=== PATIENT | female | born 1975 | race Caucasian/White ===

== ENCOUNTER 2021-08-31 12:10 | Outpatient (CLI) | payer BC, SELFPAY ==
[2021-08-31 17:27] LABS: Albumin* 4.6 g/dL (3.3-5.0); Chloride* 102 mmol/L (96-114); Sodium* 136 mmol/L (135-149)
[2021-08-31 17:28] LABS: Potassium* 5.1 mmol/L (3.6-5.1)
[2021-08-31 17:30] LABS: Alanine Aminotransferase* 30 U/L (4-35); Alkaline Phosphatase* 78 U/L (40-150); Amylase* 52 U/L (18-89); Aspartate Amino Transferase* 25 U/L (12-35); Bilirubin Total* 0.4 mg/dL (0.1-1.5); Blood Urea Nitrogen* 13 mg/dL (5-24); Calcium* 9.6 mg/dL (8.4-10.6); Carbon Dioxide* 26 mmol/L (20-32); Creatinine* 0.7 mg/dL (0.5-1.5); Glucose* 111 mg/dL (60-115); Lipase* 200 U/L (23-300); Total Protein* 6.9 g/dL (6.0-8.3)
== END 2021-08-31 12:11 | disposition home or self-care (01) ==
PROVIDERS: PCP Family Medicine; Visit Provider Family Medicine
DX: R10.9 Unspecified abdominal pain (principal); F10.10 Alcohol abuse, uncomplicated; I10 Essential (primary) hypertension; F32.9 Major depressive disorder, single episode, unspecified
CPT/HCPCS: 80053; 82150; 83690

== ENCOUNTER 2022-03-25 10:48 | Outpatient (CLI) | payer BC, SELFPAY ==
[2022-03-25 15:01] LABS: Cholesterol* 186 mg/dL (90-199)
[2022-03-25 15:02] LABS: HDL Cholesterol* 64 mg/dL (>=50); LDL Cholesterol Calculated 110 mg/dL (<100); Triglycerides* 62 mg/dL (40-149)
[2022-03-25 16:44] LABS: Chlamydia DNA Amplified* NOT DETECTED (No Detected); GC DNA Amplified* NOT DETECTED (No Detected)
== END 2022-03-25 10:49 | disposition home or self-care (01) ==
PROVIDERS: PCP Family Medicine; Visit Provider Registered Nurse
DX: Z01.419 Encounter for gynecological examination (general) (routine) without abnormal findings (principal); I10 Essential (primary) hypertension; Z13.6 Encounter for screening for cardiovascular disorders; Z11.3 Encounter for screening for infections with a predominantly sexual mode of transmission; N94.9 Unspecified condition associated with female genital organs and menstrual cycle
CPT/HCPCS: 80061; 87491; 87591

== ENCOUNTER 2022-04-29 12:16 | Outpatient (CLI) | payer BC, SELFPAY ==
[2022-04-29 17:59] LABS: SARS PCR* Negative SARS-CoV-2 (Negative)
== END 2022-04-29 12:17 | disposition home or self-care (01) ==
LOC: LONREF 12:16
PROVIDERS: PCP Family Medicine; Visit Provider Family Medicine
DX: R05.9 Cough, unspecified (principal)
CPT/HCPCS: 87635

== ENCOUNTER 2022-05-09 19:08 | Outpatient (REF) | payer BC, SELFPAY ==
[2022-05-09 19:41] LABS: Chloride* 103 mmol/L (96-114); Sodium* 136 mmol/L (135-149)
[2022-05-09 19:42] LABS: Potassium* 5.1 mmol/L (3.6-5.1)
[2022-05-09 19:44] LABS: Carbon Dioxide* 26 mmol/L (20-32); Creatinine* 0.8 mg/dL (0.5-1.5); Estimated Glomerular Filt Rate 93 ml/min
[2022-05-09 19:45] LABS: Blood Urea Nitrogen* 18 mg/dL (5-24); Calcium* 9.7 mg/dL (8.4-10.6); Glucose* 97 mg/dL (60-115)
[2022-05-09 19:54] LABS: NT Pro B Type NatriureticPept* 941 pg/mL
== END 2022-05-09 19:09 | disposition home or self-care (01) ==
LOC: NPINS 19:08
PROVIDERS: PCP Family Medicine
DX: I50.32 Chronic diastolic (congestive) heart failure (principal)
CPT/HCPCS: 80048; 83880

== ENCOUNTER 2023-01-10 15:05 | Outpatient (CLI) | payer BC, SELFPAY | END 2023-01-10 15:06 | disposition home or self-care (01) | PROVIDERS: PCP Family Medicine; Visit Provider Family Medicine | DX: I10 Essential (primary) hypertension (principal); Z13.29 Encounter for screening for other suspected endocrine disorder; Z13.6 Encounter for screening for cardiovascular disorders | CPT/HCPCS: 80048; 80061; 84443 ==

== ENCOUNTER 2023-03-22 19:01 | Emergency (ER) | payer BC, SELFPAY ==
[2023-03-22 19:05] VITALS: BP 125/81; PULSE 58; RESP 16; TEMP 36.2; O2SAT 98; BMI 27.5
--- NOTE | 2023-03-22 19:10 | ED.GENADULT ---
HPI - General Adult General Chief complaint: Head Injury/Pain Stated complaint: concussion fell on head, high bp Time Seen by Provider: 03/22/23 19:10 History of Present Illness HPI narrative: Pt fell 2 weeks ago, suffered a frontal face injury at that time. Pt has continued to have symptoms since then: headaches, mood changes, nauseous, dizziness. 47-year-old woman accompanied by significant other reports trip and fall event 2 weeks ago where she fell into the tub I believe at home striking her face. Unclear whether not there was actual syncope. She does not acknowledge lightheadedness or palpitations or otherwise prior to this event. Has continued to have nausea and headache and fogginess since this event. Mood changes. It is hard to eat for the nausea. Pain over right periorbital forehead area and the left but more right. She is not seeing double. Bothered by a lump that remains after some degree of bruising around her eyes. This lump is in the outer 3rd of the infraorbital area above the right eye. Denies neck or back pain or injury. Kadie struggles with anxiety and I note her to be somewhat tremulous. Is worried that might have head bleed or fracture. Would also appreciate treatment for headache. She is clear that this was a trip and fall event. Has also been worried about elevated blood pressures. Past medical reviewed. Related Data Home Medications Medication Instructions Recorded Confirmed omeprazole 20 mg capsule,delayed 20 mg PO QDAY 08/31/21 01/10/23 release carvedilol 6.25 mg tablet 6.25 mg PO BID 05/30/22 01/10/23 clonidine HCl 0.2 mg tablet 0.2 mg PO QHS 05/30/22 01/10/23 losartan 25 mg tablet 12.5 mg PO QDAY 05/30/22 01/10/23 Previous Rx's Medication Instructions Recorded disulfiram 250 mg tablet See Rx Instructions .Route 08/30/22 .COMPLEX #90 tabs citalopram 40 mg tablet 40 mg PO QDAY #90 tabs 12/29/22 bupropion HCl 150 mg 24 hr tablet, 150 mg PO QAM #30 tabs 01/10/23 extended release furosemide 20 mg tablet 40 mg (2 x 20 mg) PO QAM #180 tabs 01/10/23 zolpidem 5 mg tablet 5 mg PO QHS PRN insomnia #21 tabs 01/10/23 atorvastatin 20 mg tablet 20 mg PO QDAY #90 tabs 01/19/23 clonazepam 1 mg tablet See Rx Instructions PO TID #60 tabs 03/14/23 ondansetron 4 mg disintegrating 4 mg PO Q4-6H PRN nausea and 03/22/23 tablet vomiting #15 tabs Allergies Allergy/AdvReac Type Severity Reaction Status Date / Time No Known Drug Allergies Allergy Verified 01/10/23 14:21 Review of Systems Status of ROS: Reports: 6 or more systems reviewed and unremarkable except as noted in History and below [facility] Medical History Cervical dysplasia ?N87.9 - Dysplasia of cervix uteri, unspecified (ICD-10) Surgical History S/P LEEP (05/30/22) ?Z98.890 - Other specified postprocedural states (ICD-10) History of loop electrosurgical excision procedure (LEEP) (2005) ?Z98.890 - Other specified postprocedural states (ICD-10) History of tubal ligation ?Z98.51 - Tubal ligation status (ICD-10) Family History Paternal Grandfather Coronary artery disease Father Alcoholism High blood pressure Brother Alcoholism Maternal Grandmother Breast cancer Social History What is your current living situation?: I presently have a place to live Problems where you live: no known problems In the past 12 months, utilities in danger of being shut off: no In past 12 months, lack of transportation kept you from medical appts, meetings, work, or getting things needed for daily living: no In the past 12 mos, have been you worried that your food would run out before you had money to buy more?: sometimes true In the past 12 mos, the food you bought just didn't last and you didn't have money to buy more?: never true Smoking Status: Current every day smoker Non-prescribed substance use: denies use How often does anyone, including family, friends and others, physically hurt you: never How often does anyone, including family, friends and others, insult or talk down to you: rarely How often does anyone, including family, friends and others, threaten you with harm: never How often does anyone, including family, friends and others, scream or curse at you: never Little interest or pleasure in doing things: more than half the days Feeling down, depressed, or hopeless: nearly every day Exam Narrative: Exam Narrative: Appears generally uncomfortable. Flatter affect. Breathing easily. Bruising noted consistent with date of injury in the right periorbital area. There is a sub cm swelling in the soft tissue in the soft tissue of the supraorbital rim on the right little more lateral. Extraocular movements are intact. No nystagmus. Pupils are equal and 3 mm. External ear canals are free of fluid. Nose appears to be midline. Oropharynx without acute abnormality/injury. Neck is supple nontender other than a little soreness in the right trapezial musculature. Back is otherwise nontender. Lungs are clear. Heart in slow but regular rate. Extremities are well perfused without edema. Moving all extremities without difficulty. Const: Vital Signs, click to edit/add: Vital Signs - 24 hr 03/22/23 19:05 03/22/23 19:29 03/22/23 21:36 Temperature 97.1 F L 98.3 F Pulse Rate [Pulse Oximeter] 58 L 61 Respiratory Rate 16 16 Blood Pressure [Ri ght Upper Arm] 125/81 118/79 Pulse Oximetry 98 96 97 Oxygen Delivery Me thod Room Air Room Air Documenting provider has reviewed patient's vital signs: yes Course Vital Signs Vital signs: Initial Vital Signs Temperature 97.1 F L 03/22/23 19:05 Temperature Source Temporal Artery Scan 03/22/23 19:05 Pulse Rate 58 L 03/22/23 19:05 Respiratory Rate 16 03/22/23 19:05 Blood Pressure 125/81 03/22/23 19:05 Blood Pressure Mean 95 03/22/23 19:05 Blood Pressure Position Sitting 03/22/23 19:05 Pulse Oximetry 98 03/22/23 19:05 Oxygen Delivery Method Room Air 03/22/23 19:05 Vital Signs Temperature 97.1 F L 03/22/23 19:05 Pulse Rate 58 L 03/22/23 19:05 Respiratory Rate 16 03/22/23 19:05 Blood Pressure 125/81 03/22/23 19:05 Pulse Oximetry 98 03/22/23 19:05 Oxygen Delivery Method Room Air 03/22/23 19:05 Temperature 98.3 F 03/22/23 21:36 Pulse Rate 61 03/22/23 21:36 Respiratory Rate 16 03/22/23 21:36 Blood Pressure 118/79 03/22/23 21:36 Pulse Oximetry 97 03/22/23 21:36 Oxygen Delivery Method Room Air 03/22/23 21:36 Medications Administered Medications: Discontinued Medications Generic Name Dose Route Start Last Admin Trade Name Freq PRN Reason Stop Dose Admin Sodium Chloride 1,000 mls @ 1,000 mls/hr 03/22/23 19:29 03/22/23 21:00 0.9 % Sodium Chloride 1000 Ml IV 03/22/23 20:28 Infused .Q1H ONE Infusion Ketorolac Tromethamine 30 mg 03/22/23 19:32 03/22/23 19:40 Ketorolac 30 Mg/Ml Inj IVP 03/22/23 19:33 30 mg ONCE ONE Administration Lorazepam 0.5 mg 03/22/23 19:32 03/22/23 19:40 Lorazepam 2 Mg/Ml Inj IVP 03/22/23 19:33 0.5 mg ONCE ONE Administration Ondansetron HCl 4 mg 03/22/23 19:32 03/22/23 19:40 Ondansetron 2 Mg/Ml Inj IVP 03/22/23 19:33 4 mg ONCE ONE Administration Medical Decision Making MDM Narrative Medical decision making narrative: There is a history of alcohol abuse and anxiety. Apparently maintaining sobriety. I would suspect concussion here. Otherwise in this circumstance I think it is very reasonable to scan head and face for evidence of injury or bleed. Offered treatment for her headache. She would like that as well. Check basic labs if there might be some other indication as to reason for this fall. I think anxiety is compounding symptoms here today. IVs established. Ordered for normal saline, ketorolac Zofran and singular dose of lorazepam. On reassessment appeared somewhat improved though did not seem to think she felt that much better. Stable vitals. Did discuss other treatment options but felt like she just wanted to go home at this point. Labs are reassuring. Imaging is WNL by my read. Radiology over-read as below. COMPARISON: Face CT from 08/02/2021. FINDINGS: No acute fracture of the maxillofacial bones. No significant soft tissue injury. The orbital contents are normal in appearance. There is no evidence for penetrating injury to the ocular globes. The lenses are situated in their normally expected anterior locations. No radiodense or metallic foreign body is demonstrated. The sinonasal cavities are clear. Mild leftward nasal septal deviation. The visualized portions of the brain are normal in appearance. IMPRESSION: 1. No acute fracture of the maxillofacial bones. Head CT INDICATION: Follow-up. Worsening headaches TECHNIQUE: CT of the head without contrast. Coronal and sagittal reformats are included. COMPARISON: None. FINDINGS: No acute intracranial hemorrhage. No mass effect or midline shift. No hydrocephalus or extra-axial collections. White matter is within normal limits for age. No acute osseous abnormalities. Mastoid air cells and paranasal sinuses are clear. Normal soft tissues. IMPRESSION: IMPRESSION: 1. No acute intracranial abnormalities. See patient discharge plan Medical Records Medical records reviewed: Yes I reviewed the patient's medical records Lab Data Lab results reviewed: Yes I reviewed the patient's lab results Labs: Lab Results 03/22/23 Range/Units 19:32 Hgb 14.3 (12.0-16.0) gm/dL Sodium 137 (135-149) mmol/L Potassium 3.6 (3.6-5.1) mmol/L Chloride 104 (96-114) mmol/L Carbon Dioxide 27 (20-32) mmol/L Anion Gap 6 L (7-15) mEq/L BUN 12 (5-24) mg/dL Creatinine 0.7 (0.5-1.5) mg/dL Estimated Creat Clear 83.95 Estimated GFR 109 ml/min Glucose 107 (60-115) mg/dL Calcium 9.3 (8.4-10.6) mg/dL Total Bilirubin 0.3 (0.1-1.5) mg/dL Direct Bilirubin 0.0 (0.0-0.5) mg/dL AST 25 (12-35) U/L ALT 39 H (4-35) U/L Alkaline Phosphatase 85 (40-150) U/L Total Protein 7.6 (6.0-8.3) g/dL Albumin 4.5 (3.3-5.0) g/dL Ethyl Alcohol < 0.01 L (0.01-0.03) % Discharge Plan Discharge Clinical Impression: Concussion, Closed head injury, Headache Patient Disposition: Home w/ Parent or Adult Condition: Stable Additional Instructions: Focus on staying well hydrated with water. Gentle advance of diet. [place] foods. Soup, smoothies, rice, toast, crackers Try to get quality and regular sleep. Your brain needs this. It might be time to follow with primary care and/or physical therapy to evaluate further for post concussive syndrome/symptoms. Blood pressure here today looked quite good. If you are still taking clonidine regularly, that is definitely a medication that you should not stop abruptly. Kyler from [employer] -- had to send in to pharmacy. Prescriptions: New ondansetron 4 mg tablet,disintegrating 4 mg PO Q4-6H PRN (Reason: nausea and vomiting) Qty: 15 0RF No Action omeprazole 20 mg capsule,delayed release(DR/EC) 20 mg PO QDAY bupropion HCl 150 mg tablet extended release 24 hr 150 mg PO QAM Qty: 30 5RF zolpidem 5 mg tablet 5 mg PO QHS PRN (Reason: insomnia) Qty: 21 1RF furosemide 20 mg tablet 40 mg PO QAM Qty: 180 1RF losartan 25 mg tablet 12.5 mg PO QDAY carvedilol 6.25 mg tablet 6.25 mg PO BID Rx Instructions: must administer with a meal/food clonidine HCl 0.2 mg tablet 0.2 mg PO QHS disulfiram 250 mg tablet See Rx Instructions .ROUTE .COMPLEX Qty: 90 1RF Dose Instruction: TAKE 1 TABLET BY MOUTH EVERY DAY Rx Instructions: TAKE 1 TABLET BY MOUTH EVERY DAY citalopram 40 mg tablet 40 mg PO QDAY Qty: 90 0RF atorvastatin 20 mg tablet 20 mg PO QDAY Qty: 90 3RF clonazepam 1 mg tablet See Rx Instructions PO TID Qty: 60 1RF Rx Instructions: 0.5-1 mg t.i.d. p.r.n. Follow Up/Referrals: Juan Carlos Mcqueen MD [Primary Care Provider] - Stand Alone Forms: [employer] Info Instructions
[2023-03-22 19:29] VITALS: O2SAT 96
--- NOTE | 2023-03-22 19:29 | CRLHL7_ITS ---
For Patients: As a result of the Century Cures Act, medical imaging exams and procedure reports are released immediately into your electronic medical record. You may view this report before your referring provider. If you have questions, please contact your health care provider. INDICATION: Facial trauma. TECHNIQUE: CT of the face without contrast. Coronal reconstructions are included. COMPARISON: Face CT from 08/02/2021. FINDINGS: No acute fracture of the maxillofacial bones. No significant soft tissue injury. The orbital contents are normal in appearance. There is no evidence for penetrating injury to the ocular globes. The lenses are situated in their normally expected anterior locations. No radiodense or metallic foreign body is demonstrated. The sinonasal cavities are clear. Mild leftward nasal septal deviation. The visualized portions of the brain are normal in appearance. IMPRESSION: 1. No acute fracture of the maxillofacial bones. Please note that all CT scans at this facility use dose modulation, iterative reconstruction, and/or weight-based dosing when appropriate to reduce radiation dose to as low as reasonably achievable. Dictated by Richard Durham MD @ 03/22/2023 8:37:15 PM (Electronically Signed)
--- NOTE | 2023-03-22 19:30 | CRLHL7_ITS ---
For Patients: As a result of the Century Cures Act, medical imaging exams and procedure reports are released immediately into your electronic medical record. You may view this report before your referring provider. If you have questions, please contact your health care provider. INDICATION: Follow-up. Worsening headaches TECHNIQUE: CT of the head without contrast. Coronal and sagittal reformats are included. COMPARISON: None. FINDINGS: No acute intracranial hemorrhage. No mass effect or midline shift. No hydrocephalus or extra-axial collections. White matter is within normal limits for age. No acute osseous abnormalities. Mastoid air cells and paranasal sinuses are clear. Normal soft tissues. IMPRESSION: IMPRESSION: 1. No acute intracranial abnormalities. Please note that all CT scans at this facility use dose modulation, iterative reconstruction, and/or weight-based dosing when appropriate to reduce radiation dose to as low as reasonably achievable. Dictated by Richard Durham MD @ 03/22/2023 8:26:01 PM (Electronically Signed)
[2023-03-22] MEDS: 0.9 % SODIUM CHLORIDE 1000 ml 1,000 ML IV (19:36)
[2023-03-22 19:39] LABS: Hemoglobin* 14.3 gm/dL (12.0-16.0)
[2023-03-22] MEDS: KETOROLAC 30 MG/ML inj IVP (19:40)
[2023-03-22] MEDS: LORazepam 2 MG/ML inj 0.5 MG IVP (19:40)
[2023-03-22] MEDS: ONDANSETRON 2 MG/ML inj 4 MG IVP (19:40)
--- OUTSIDE RECORDS SUMMARY | 2023-03-22 19:48 | XMS_ITS | Referral Summary ---
Author Name Unknown Organization [facility] Address [address] [place] [address] Care Team Providers Care Web Site Administrator Name Role Phone Unavailable Primary Care Provider Unavailabl e Allergies Active Allergy Reactions Criticality Noted Date Comments No Known Drug Allergy 12/05/2001 Medications Medication Sig Dispensed Refills Start Date End Date Status citalopram (CELEXA) 40 MG tabletIndications:Mateo marcos depressive disorder, single episode, mild (H24),Anxiety Take 1 tablet (40 mg) by mouth daily 30 tablet 1 11/19/2015 Active traZODone (DESYREL) 50 MG tabletIndications:Un complicated alcohol dependence (H) Take 1 tablet (50 mg) by mouth nightly as needed for sleep 30 tablet 0 11/20/2015 Active disulfiram (ANTABUSE) 250 MG tabletIndications:Un complicated alcohol dependence (H) Take 1 tablet (250 mg) by mouth daily 30 tablet 0 11/20/2015 Active lisinopril (ZESTRIL) 40 MG tablet Take 40 mg by mouth daily 0 Active metoprolol succinate ER (TOPROL-XL) 100 MG 24 hr tablet Take 100 mg by mouth daily 0 Active naltrexone (DEPADE/REVIA) 50 MG tablet Take 50 mg by mouth daily 0 Active ondansetron (ZOFRAN) 4 MG tablet Take 4 mg by mouth every 6 hours as needed for nausea 0 Active cloNIDine (CATAPRES) 0.2 MG tablet Take 1 tablet by mouth in the morning and 2 tablets at bedtime 0 Active clonazePAM (KLONOPIN) 1 MG tablet Take 1/2 tablet by mouth in the morning, 1/2 tablet in the afternoon, and 1 tablet at bedtime 0 Active omeprazole (PRILOSEC OTC) 20 MG EC tablet Take 20 mg by mouth daily 0 Active oxymetazoline (AFRIN) 0.05 % nasal spray [place] 2 sprays into both nostrils daily as needed 0 Active gabapentin (NEURONTIN) 400 MG capsule Take 1 capsule (400 mg) by mouth 3 times daily For 3 days, then twice daily for 1 day, then once daily on day 5, then stop 12 capsule 0 08/02/2020 Active Active Problems Problem Noted Date Diagnosed Date Alcohol abuse 11/18/2015 [facility] 05/06/2011 Overview: X EMERGENCY CARE PLAN Presenting Problem Signs and Symptoms Treatment Plan Questions or concerns during clinic hours I will call the clinic directly Questions or concerns outside clinic hours I will call the 24 hour nurse line at [phone] Patient needs to schedule an appointment I will call the 24 hour scheduling team at [phone] or clinic directly Same day treatment I will call the clinic first, nurse line if after hours, urgent care and express care if needed DX V65.8 REPLACED WITH [id number] [facility] (06/11/2012) PIH ( induced hypertension) 10/11/2010 Overview: Pt received betamethasone x's doses 10/15/10 and 10/16/10 Tobacco use disorder 05/11/2010 Overview: Pt. Continues to smoke appx. Three cigarettes daily during . Autism 05/11/2010 Overview: Pt's son Dionisio was dx'd with autism, tested neg for fragile X CARDIOVASCULAR SCREENING; LDL GOAL LESS THAN 160 01/03/2010 Anxiety state 03/16/2006 Overview: Problem list name updated by automated process. Provider to review mental disorders of mother 02/07/2006 Overview: Problem list name updated by automated process. 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 Provider to review and confirm.) Encounter for supervision of other normal 10/12/2005 02/08/2011 Overview: Diagnosis updated by automated process. Provider to review and confirm. Immunizations Name Administration Dates Next Due Influenza (IIV3) PF 12/14/2005 TDAP (Adacel,Boostrix) 03/06/2009 Social History Tobacco Use Types Packs/Day Years Used Date Smoking Tobacco: Every Day Cigarettes 0.5 10 Smokeless Tobacco: Never Comments:Not everyday, when she does smoke it is only 1-2 Alcohol Use Standard Drinks/Week Comments Yes 0 (1 standard drink = 0.6 oz pur e alcohol) Adolescent Education Answer Date Record ed Getting School Help Needed Not on file 12/11 Sex and Gender Information Value Date Recorded Sex Assigned at Not on file Gender Identity Not on file Sexual Orientation Not on file Last Filed Vital Signs Vital Sign Reading Time Taken Comments Blood Pressure 156/89 08/02/2020 3:02 PM CDT Pulse 65 08/02/2020 3:02 PM CDT Temperature 36.1 ??C (96.9 ??F) 08/02/2020 3:02 PM CD T Respiratory Rate 16 08/02/2020 5:48 PM CDT Oxygen Saturation 96% 08/02/2020 3:02 PM CDT Inhaled Oxygen Concentration - - Weight 64.5 kg (142 lb 1.6 oz) 08/02/2020 3:14 P M CDT Height 160 cm (5' 3) 11/18/2015 12:58 AM CDT Body Mass Index 25.17 11/18/2015 12:58 AM CDT Plan of Treatment Not on file Medical Devices Implanted Type Area Presser Hand Device Identifier Shelf Expiration Date Model / Serial / Lot Device Essure [id number] Implanted:Qty: 2 on 02/09/[address] [facility] Bilateral: Fallopian Tube [employer] [id number] / / [id number] Advance Directives For more information, please contact: [phone] Latest Code Status on File Code Status Date Activated Date Inactivated Comments Full Code 11/18/2015 12:49 AM 11/20/2015 4:26 PM
--- OUTSIDE RECORDS SUMMARY | 2023-03-22 19:48 | XMS_ITS | Encounter Summary ---
Author Name Unknown Organization [facility] Address [address] [place] [address] Care Team Providers Care Compounding And Finishing Supervisor Name Role Phone Unavailable Primary Care Provider Unavailabl e Reason for Visit * Reason Onset Date Comments CD Outpatient 11/18/2015 lodging plus Other Encounter Details Date Type Department Care Team ([facility] Contact Info) Description 11/18/[address] [facility] Behavior[facility] Health Intake [address] [place] [phone] Generic, Behavioral Intake, CD Outpatient (lodging plus); Social History Tobacco Use Types Packs/Day Years Used Date Smoking Tobacco: Some Days Cigarettes 0.5 10 Smokeless Tobacco: Never Comments:Not everyday, when she does smoke it is only 1-2 Alcohol Use Standard Drinks/Week Comments Yes 0 (1 standard drink = 0.6 oz pur e alcohol) Sex and Gender Information Value Date Recorded Sex Assigned at Not on file Gender Identity Not on file Sexual Orientation Not on file documented as of this encounter Miscellaneous Notes * Telephone Encounter - Isaiah Delong - 11/26/2015 10:54 AM CDT Attempted to call patient to set up LP admit, phone rings multiple times and doesn't go to voicemail. Since patient hasn't called to check in and her phone is not working will take off the list untilfurther notice. I spoke with her father at the other number and he stated she can only be reached at that number. * Telephone Encounter - Isaiah Delong - 11/25/2015 10:22 AM CDT Attempted to call the patient today to see if she is interested in setting up LP admit. Phone ringsmultiple times and doesn't go to voicemail. * Telephone Encounter - Isaiah Delong - 11/24/2015 11:16 AM CDT Called patient to check in and see if she is still interested in LP- unable to leave a message the phone rang multiple times but never went to voicemail. * Telephone Encounter - Jim Davis - 11/19/2015 3:07 PM CDT ----- Message from Natalie Friedman sent at 11/19/2015 2:40 PM CDT ----- Regarding: LP wait list Patient is discharging home to make arrangements for the care of her children. Please maintain on wait list. Patient's contact numbers are: Home: Parent's home: [phone] Thank you * Telephone Encounter - Natalie Friedman LADC - 11/19/2015 11:16 AM CDT SBAR Name: Kadie Moss Date of : 1975 Age: [age] year old Gender: female Insurance: [facility] Precipitating Event: Treatment due to own awareness of need for help, Treatment due to pressure from family members to get help and to help her family heal. DOC: Alcohol and Nicotine Additional abused substances: None Medical: Hypertension Mental Health: Depression, Anxiety, PTSD, Borderline Personality D/O, History of trauma and/or abuse issues and Significant grief and loss issues Previous Treatments: 1 prior IP detoxification admission(s). 2 prior CD treatment(s). Psychosocial: and Seperated 5 minor child(ginette) Stable housing and no concerns (guns in home but locked) Minimal support network, Tendency to isolate from others, Marital or relationship conflict with significant other due to substance abuse, Relationship conflict with family members or friends due to substance abuse, No history of legal charges, Decreased performance at work or school in part due to substance abuse and Financial problems Suicide Risk Status: Emergent? No Urgent / Non-Emergent? No Present / Non- Urgent? No No Current Risk? Yes, Evaluation Counselors - Document in Epic / SBAR to counselor No identified risk Additional Info as needed: Electronically signed by Natalie Friedman I [facility] at 11/19/2015 11:33 AM CDT * Telephone Encounter - Kassy Castillo - 11/18/2015 9:31 AM CDT Placed on priority list. Kassy Castillo * Telephone Encounter - Kassy Castillo - 11/18/2015 9:30 AM CDT ----- Message from Natalie Friedman sent at 11/18/2015 8:39 AM CDT ----- Regarding: LP Referral Patient is requesting LP [facility] Transfer date TBD (/Monday?) Please place on priority list Thank you documented in this encounter Plan of Treatment Not on file documented as of this encounter Visit Diagnoses Not on filedocumented in this encounter
--- OUTSIDE RECORDS SUMMARY | 2023-03-22 19:48 | XMS_ITS | Encounter Summary ---
Author Name Unknown Organization [place] Address [address] [facility] [place] [address] Care Team Providers Care Night Clerk Name Role Phone Unavailable Primary Care Provider Unavailabl e Reason for Visit * Reason Onset Date Comments MH/CD Inpatient 11/17/2015 Encounter Details Date Type Department Care Team ([facility] st Contact Info) Description 11/17/2015 Telephone [facility] Behavioral Health Intake [address] [place] [address] Generic, Behavioral Intake, MH/CD Inpatient Social History Tobacco Use Types Packs/Day Years [...] encounter Miscellaneous Notes * Telephone Encounter - Prema Reina - 11/17/2015 10:10 PM CDT S: pt is a 40 yr old fem in ED for detox from etoh report by Dr. France B: pt reports she is drinking packs of wine daily. Last reported drink was 7 pm. Breathalyzer .215.Hx of detox and treatment pt reports she can't remember when. No reported hx of DTs or seizures. Ptdenies other drug use. Hx of dep and borderline personality d/o. Medical: high bp. A: vol R: 3a / Amer / cd documented in this encounter Plan of Treatment Not on file documented as of this encounter Visit Diagnoses Not on filedocumented in this encounter
--- OUTSIDE RECORDS SUMMARY | 2023-03-22 19:48 | XMS_ITS | Clinical Summary ---
Author Name Unknown Organization [place] Address [address] [facility] [place] [address] Care Team Providers Care Endo Tech Name Role Phone Unavailable Primary Care Provider [...] Active oxymetazoline (AFRIN) 0.05 % nasal spray [place] 2 sprays into both nostrils daily as needed 0 Active gabapentin (NEURONTIN) 400 MG capsule Take 1 capsule (400 mg) by mouth 3 times daily For 3 days, then twice daily for 1 day, then once daily on day 5, then stop 12 capsule 0 08/02/2020 Active Active Problems Problem Noted Date Diagnosed Date Alcohol abuse 11/18/2015 [facility] 05/06/2011 Overview: X EMERGENCY CARE PLAN Presenting Problem Signs and Symptoms Treatment Plan Questions or concerns during clinic hours I will call the clinic directly Questions or concerns outside clinic hours I will call the 24 hour nurse line at [phone] Patient needs to schedule an appointment I will call the 24 hour scheduling team at [phone] or clinic directly Same day treatment I will call the clinic first, nurse line if after hours, urgent care and express care if needed DX V65.8 REPLACED WITH [id number] [facility] LONGTERM (06/11/2012) PIH ( induced hypertension) 10/11/2010 Overview: [...] 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 Provider to review and confirm.) Encounter for supervision of other normal 10/12/2005 02/08/2011 Overview: Diagnosis updated by automated process. Provider to review and confirm. Immunizations Name Administration Dates Next Due Influenza (IIV3) PF 12/14/2005 TDAP (Adacel,Boostrix) 03/06/2009 Family History Medical History Relation Comments Lipids Father Cancer Maternal Grandfather lung Breast Cancer Maternal Grandmother Relation Status Comments Father Maternal Grandfather Maternal Grandmother Social History Tobacco Use Types Packs/Day Years [...] 11/18/2015 12:58 AM CDT Plan of Treatment Health Maintenance Due Date Last Done Comments ADVANCE CARE PLANNING 1977 ANNUAL REVIEW OF HM ORDERS 1977 CT COLONOGRAPHY 1977 DEPRESSION ACTION PLAN 1977 FIT 1977 FLEX SIG 1977 HEPATITIS B IMMUNIZATION (1 of 3 - 3-dose series) 1977 MAMMO SCREENING 1977 sDNA (Cologuard) 1977 COVID-19 Vaccine (#1) 02/22/1978 Pneumococcal Vaccine: Pediatrics (0 to 5 Years) and At-Risk Patients (6 to 64 Years) (1 of 2 - PCV) 08/24/1983 COLONOSCOPY 08/24/1987 COLORECTAL CANCER SCREENING 08/24/1987 HEPATITIS C SCREENING 08/24/1995 YEARLY PREVENTIVE VISIT 08/25/2010 08/25/2009, 05/14 PHQ-9 10/21/2011 04/22/2011, 10/26/2010 PAP 01/11/2012 01/10/2011, 05/05, 08/25/2009, Additional history exists DTAP/TDAP/TD IMMUNIZATION (2 - Td or Tdap) 03/06/2019 03/06/2009 LIPID 2022 INFLUENZA VACCINE (#1) 2022 12/14/2005 HIV SCREENING Completed 05/11/2010, 05/03/2004 HPV IMMUNIZATION Aged Out No longer e ligible based on patient's age to complete this topic IPV IMMUNIZATION Aged Out No longer e ligible based on patient's age to complete this topic MENINGITIS IMMUNIZATION Aged Out No l onger eligible based on patient's age to complete this topic RSV MONOCLONAL ANTIBODY Aged Out No l onger eligible based on patient's age to complete this topic Medical Devices Implanted Type Area Blast Setter Device Identifier Shelf Expiration Date Model / Serial / Lot Device Essure [id number] Implanted:Qty: 2 on 02/09/2011 at [facility] Bilateral: Fallopian Tube [employer] [id number] / / [id number] Advance Directives For more information, please contact: [phone] Latest Code Status on File Code Status Date Activated Date Inactivated Comments Full Code 11/18/2015 12:49 AM 11/20/2015 4:26 PM
--- OUTSIDE RECORDS SUMMARY | 2023-03-22 19:48 | XMS_ITS | Encounter Summary ---
Author Name Unknown Organization [facility] Address [address] [facility] [place] [address] Care Team Providers Care Parking Meter Mechanic Name Role Phone Niko Pryor MD Primary Care Provider [phone] Jayden Santo MD Primary Care Provider Encounter Details Date Type Department Care Team (Late st Contact Info) Description 11/10/2010 [facility] [address] [place] [id number] Olive Brown, DO [address] [place], [place] [id number] [facility] Delivery Record Social History Tobacco Use Types Packs/Day Years Used Date Smoking Tobacco: Every Day Cigarettes 0.5 10 Smokeless Tobacco: Never Comments:Not everyday, when she does smoke it is only 1-2 Alcohol Use Standard Drinks/Week Comments Yes 0 (1 standard drink = 0.6 oz pur e alcohol) Comments Yes Sex and Gender Information Value Date Recorded Sex Assigned at Not on file Gender Identity Not on file Sexual Orientation Not on file documented as of this encounter Plan of Treatment Not on file documented as of this encounter Visit Diagnoses Diagnosis [facility] Delivery Record- Primary documented in this encounter Care Teams Parking Meter Mechanic Relationship Specialty Start Date End Date Niko Pryor MD [address] [place] [address] PCP - General 04/20/01 04/30/11 Jayden Santo MD [address] [place] [id number] PCP - General Internal Medicine 05/01/11 03/06/15 documented as of this encounter
--- OUTSIDE RECORDS SUMMARY | 2023-03-22 19:48 | XMS_ITS | Clinical Summary ---
Author Name Unknown Organization [facility] Address [place], [place] [address] Care Team Providers Care Pharmacy Technician Instructor Name Role Phone Juan Carlos Mcqueen MD Primary Care Provider [phone] Renato Hayward MD Unavailable [phone] Nurses, Advanced Heart Failure Unavailable + Allergies No known active allergies Medications Medication Sig Dispensed Refills Start Date End Date Status citalopram (CELEXA) 40 mg tablet Take 40 mg by mouth every morning. 0 01/19/2022 Active clonazePAM (KLONOPIN) 1 mg tablet 1 mg 3 times daily if needed for Anxiety. 0 04/01/2022 Active disulfiram (ANTABUSE) 250 mg tablet 250 mg every morning. 0 04/08/2022 Active Deblitane 0.35 mg tablet 0.35 mg once daily. 0 04/18/2022 Active cloNIDine HCL (CATAPRES) 0.2 mg tabletIndications:Hype rtension Take 0.5 Tablets (0.1 mg) by mouth at bedtime. 04/29/22: (Prescribed as 0.2 mg QAM + 0.4 mg QHS; however, patient takes only 0.4 mg at bedtime due to drowsiness) 0 05/04/2022 Active ARIPiprazole (ABILIFY) 5 mg tabletIndications:Anxi ety,Depressive disorder,Panic disorder without agoraphobia Take one-half Tablet (2.5 mg) by mouth every morning. 90 Tablet 3 05/05/2022 Active nicotine (NICOTROL) 10 mg inhalerIndications:Tob acco use disorder Inhale 10 mg by mouth every hour while awake as needed for Nicotine Craving. 168 Each 3 05/10/2022 Active carvediloL (COREG) 12.5 mg tabletIndications:Othe r cardiomyopathy (HC),Hypertension Take 6.25 mg (1/2 tablet) in the AM and 12.5 mg (1 tablet) in the PM 135 Tablet 3 06/01/2022 Active furosemide (LASIX) 20 mg tabletIndications:Og estive heart failure, unspecified HF chronicity, unspecified heart failure type (HC) Take 40 mg (2 tablets) twice a day until weight is back down to 143 lbs. Then start taking 20 mg (1 tablet) twice a day 90 Tablet 3 09/07/2022 Active losartan (COZAAR) 25 mg tabletIndications:Othe r cardiomyopathy (HC),Hypertension Take 0.5 Tablets (12.5 mg) by mouth once daily. 45 Tablet 3 09/28/2022 Active Active Problems Problem Noted Date Diagnosed Date Anxiety 04/29/2022 Hypertension 04/29/2022 Cardiomyopathy 04/29/2022 Alcohol abuse 11/18/2015 Tobacco use disorder 05/11/2010 Overview: Pt. Continues to smoke appx. Three cigarettes daily during . Panic disorder without agoraphobia 08/02/2007 Depressive disorder, not elsewhere classified Chest pain Social History Tobacco Use Types Packs/Day Years Used Date Smoking Tobacco: Every Day Cigarettes 0.5 32 Started: 1991 Smokeless Tobacco: Never Tobacco Cessation:Ready to Q uit: Not Asked; Counseling Given: Not Answered Alcohol Use Standard Drinks/Week Comments Not Currently 0 (1 standard drink = 0.6 oz pur e alcohol) PHQ-2 Answer Date Recorded PHQ-2 TOTAL SCORE 4 08/08/2022 Social Connections Answer Date Recorded Frequency of Communication with Friends and Fami ly Not on file 05/10/2022 Sex and Gender Information Value Date Recorded Sex Assigned at Not on file Gender Identity Not on file Sexual Orientation Not on file Obstetrics History Last Filed Vital Signs Vital Sign Reading Time Taken Comments Blood Pressure 109/76 09/28/2022 10:15 AM CDT Pulse 63 09/28/2022 10:15 AM CDT Temperature 36.7 ??C (98.1 ??F) 05/04/2022 8:16 AM CS T Respiratory Rate 18 08/17/2022 11:50 AM CDT Oxygen Saturation 97% 09/28/2022 10:15 AM CDT Inhaled Oxygen Concentration - - Weight 73 kg (161 lb) 09/28/2022 10:15 AM CDT Height 160 cm (5' 2.99) 09/28/2022 10:15 AM CDT Body Mass Index 28.53 09/28/2022 10:15 AM CDT Plan of Treatment Health Maintenance Due Date Last Done Comments COVID-19 vaccine series (#1) 02/22/1978 Pneumococcal series for age 6-64 (1 of 2 - PCV) 08/24/1983 Tdap 1988 Hepatitis C screening for ag e 18-79 08/24/1995 Tetanus booster 1997 Colonoscopy through age 75 2022 Mammogram for age 45-75 2022 Influenza for age 9-49 11/04/2022 Depression screening for age 12+ 08/09/2023 08/09/19 BMI (ht and wt on same day) for age 18+ 09/29/2023 09/28/2022, 05/10/2022 Pap test for age 21-65 03/25/2025 , 03/25/2022, 03/31/2015, Additional history exists Lipids for age 45-75 04/30/2027 04/30/2022 HIV for age 15-65 Completed 04/30/2022, 04/30/2022 Advance Directives Latest Code Status on File Code Status Date Activated Date Inactivated Comments Full Code 04/29/2022 6:27 PM 05/04/2022 1:58 PM Question Answer Comments Code Status Discussion: Unable to Assess Preferences, Provider to review later Care Teams Pharmacy Technician Instructor Relationship Specialty Start Date End Date Juan Carlos Mcqueen MD PCP - General Family Practice 05/10/22 Renato Hayward MD [address] [place] [address] [address] [place] [address] Cardiovascular Disease 05/12/22 Nurses, Advanced Heart Failure [address] [place] [address] Advanced Heart Failure/Transplant Card 05/12/22
[2023-03-22 20:09] LABS: Chloride* 104 mmol/L (96-114)
[2023-03-22 20:10] LABS: Albumin* 4.5 g/dL (3.3-5.0); Potassium* 3.6 mmol/L (3.6-5.1); Sodium* 137 mmol/L (135-149)
[2023-03-22 20:12] LABS: Anion Gap 6 mEq/L (7-15); Carbon Dioxide* 27 mmol/L (20-32); Creatinine* 0.7 mg/dL (0.5-1.5); Est. Creatinine Clearance* 83.95; Estimated Glomerular Filt Rate 109 ml/min; Total Protein* 7.6 g/dL (6.0-8.3)
[2023-03-22 20:13] LABS: Alanine Aminotransferase* 39 U/L (4-35); Alkaline Phosphatase* 85 U/L (40-150); Aspartate Amino Transferase* 25 U/L (12-35); Bilirubin Total* 0.3 mg/dL (0.1-1.5); Blood Urea Nitrogen* 12 mg/dL (5-24); Calcium* 9.3 mg/dL (8.4-10.6); Glucose* 107 mg/dL (60-115)
[2023-03-22 20:21] LABS: Ethanol* < 0.01 % (0.01-0.03)
[2023-03-22 21:36] VITALS: BP 118/79; PULSE 61; RESP 16; TEMP 36.8; O2SAT 97
== END 2023-03-22 21:36 | disposition home or self-care (01) ==
PROVIDERS: Emergency Provider Family Medicine; PCP Family Medicine
DX: S06.0X0A Concussion without loss of consciousness, initial encounter (principal); W18.2XXA Fall in (into) shower or empty bathtub, initial encounter; R51.9 Headache, unspecified
CPT/HCPCS: 36415; 70450; 70486; 80048; 80076; 82077; 85018; 94761; 96374; 96375; 99284; J1885; J2060; J2405; J7030

== ENCOUNTER 2023-06-23 09:40 | Outpatient (CLI) | payer BC, SELFPAY ==
--- OUTSIDE RECORDS SUMMARY | 2023-06-23 09:42 | XMS_ITS | Clinical Summary ---
Author Name Unknown Organization [facility] Address [place], [place] [address] Care Team Providers Care Police Superintendent Name Role Phone Juan Carlos Mcqueen MD Primary Care Provider [phone] Renato Hayward MD Unavailable [phone] Nurses, Advanced Heart Failure Unavailable + Allergies No known active allergies Medications Medication Sig Dispensed Refills Start Date End Date Status citalopram (CELEXA) 40 mg tablet Take 40 mg by mouth every morning. 01/19/2022 Active clonazePAM (KLONOPIN) 1 mg tablet 1 mg 3 times daily if needed for Anxiety. 04/01/2022 Active disulfiram (ANTABUSE) 250 mg tablet 250 mg every morning. 04/08/2022 Active Deblitane 0.35 mg tablet 0.35 mg once daily. 04/18/2022 Active cloNIDine HCL (CATAPRES) 0.2 mg [...] Depressive disorder, not elsewhere classified Chest pain Encounters Date Type Department Care Team Description 05/22/2023 Lab Requisition [facility] [phone] Lindsay Earl, HYBRID CORN BREEDER from Last 3 Months Social History Tobacco Use Types Packs/Day Years Used Date Smoking Tobacco: Every Day Cigarettes 0.5 32.3 Started: 1991 Smokeless Tobacco: Never Tobacco Cessation:Ready [...] Health Maintenance Due Date Last Done Comments Pneumococcal series for age 6-64 (1 of 2 - PCV) 08/24/1983 Tdap 1988 Hepatitis C screening for ag e 18-79 08/24/1995 Tetanus booster 1997 Colonoscopy through age 75 2022 Mammogram for age 45-75 2022 COVID-19 vaccine series (2022-24 season) 2022 Depression screening for age 12+ 08/09/2023 08/09/19 BMI (ht and wt on same day) for age 18+ 09/29/2023 09/28/2022, 05/10/2022 Influenza for age 9-49 11/05/2023 Pap test for age 21-65 05/18/2026 4, 05/19/2023, 03/25/2022, Additional history exists Lipids for age 45-75 04/30/2027 04/30/2022 HIV for age 15-65 Completed 04/30/2022, 04/30/2022 Procedures Procedure Name Priority Date/Time Associated Diagnosis Comments LAB TRACKING EVENT Routine 05/19/2023 2: 15 PM CDT MULTIPLEX OPERATOR THIN PREP PAP SCREEN IMAGED Routine 05/19/2023 2:15 PM CDT HPV THIN PREP Routine 05/19/2023 2:15 PM CDT RAPID HIV SCREEN STAT 04/30/2022 10:5 6 PM GUT SORTER LIPID PANEL Early AM 04/30/2022 1:02 AM GUT SORTER from Last 3 Months or Most Recently Relevant to Health Maintenance Results * LAB TRACKING EVENT (05/19/2023 2:15 PM CDT) Other (Other) Client Collect / Unknown 05/19/2023 2:15 PM CDT 05/22/2023 3:22 PM CDT Lindsay Earl NP LAB BILL ONLY [facility] [address] [place] [address], * MULTIPLEX OPERATOR THIN PREP PAP SCREEN IMAGED (05/19/2023 2:15 PM CDT) Case Report Gynecologic Cytology Report ? Case: [id number] ? Authorizing Provider: ??Lindsay Earl NP ?? Collected: ? 05/19/2023 1415 ? Ordering Location: ? [facility] ?Received: ?05/23/2023 1250 ? First Screen: ?Olive Shaikh ? Rescreen: ?Jacob, Christopher A ? Pathologist: ? Isabella Watters ? MD Gabriella ? Specimen: ?MULTIPLEX OPERATOR ThinPrep Vial Screening, Cervical ? 05/31/2023 2:46 PM CDT [facility] INTERPRETATION/ RESULT NEGATIVE FOR INTRAEPITHELIAL LESION OR MALIGNANCY (NIL) (none) 05/31/2023 2:46 PM CDT [facility] R NON-NEOPLASTIC FINDING(S) Parakeratosis 05/31/2023 2:46 PM CDT [facility] SPECIMEN ADEQUACY Satisfactory for evaluation No endocervical component seen 05/31/2023 2:46 PM CDT [facility] HPV REQUEST HPV and PAP 05/31/2023 2:46 PM CDT [facility] Date of LMP 05/10/2023 05/31/2023 2:46 PM CDT [facility] Last Pap Date 03/25/2022 05/31/2023 2:[address] [facility] Last Pap Result LSIL 2:[address] [facility] Abnormal Pap or [place] Bx in last 5 years Yes 05/31/2023 2:[address] [facility] Menstrual Status Regular Periods 05/31/2023 2:[address] [facility] [place] Bx Done Today No 05/31/2023 2:[address] [facility] Additional Information 05/31/2023 2:[address] [facility] Comment: Interpreted at [facility] - [address] [place] [address] [address] [facility] [address], [place] [address] Automated Review Successful 05/31/2023 2:46 PM CDT [facility] Comment:Specimen processed s uccessfully by automated flat cutter device, ThinPrep Imaging System, [employer] ANCILLARY TESTING MULTIPLEX OPERATOR HPV Ordered, Please see separate report 05/31/2023 2:[address] [facility] Note The pap test is a screening technique, not a diagnostic procedure. It is used primarily to screen for squamous cancers and precursor lesions. Published studies have shown that it is subject to both false negative and false positive results. The pap test should not be used as the sole means to diagnose or exclude pre-malignant and malignant lesions. 05/31/2023 2:46 PM CDT [facility] Other (Cervical) 05/19/2023 2:15 PM CDT 05/23/2023 12:50 PM CDT Lindsay Earl NP PATHOLOGY/CYTOLOG Y [facility] [address] [place] [address], * HPV HIGH RISK (05/19/2023 2:15 PM CDT) TYPE 16 Negative Negative 05/24/2023 5:25 PM CDT [facility] TYPE 18 Negative Negative 05/24/2023 5:25 PM CDT [facility] OTHER HIGH RISK TYPES Negative Negative 05/24/2023 5:25 PM CDT [facility] Other (Cervical) 05/19/2023 2:15 PM CDT 05/23/2023 12:50 PM CDT Narrative [facility] - 05/24/2023 5:25 PM CDT HPV types 16, 18, 31, 33, 35, 39, 45, 51, 52, 56, 58, 59, 66 and 68 DNA were undetectable or below the pre-set threshold. Methodology: [address] 4800 HPV Test Lindsay Earl NP MICROBIOLOGY [facility] [address] [place] [address], * RAPID HIV SCREEN (04/30/2022 10:56 PM GUT SORTER) Pathologist [facility] RAPID HIV SCREEN Non-React marquez Non-Reactiv e, Invalid 04/30/2022 11:59 PM GUT SORTER [facility] Comment:A NONREACTIVE test r esult means that HIV-1 or HIV-2 antibodies and HIV-1 p24 antigen were not detected in the specimen. Blood BLOOD SPECIMEN / Unknown Butterfly / Unknown 04/30/2022 10:56 PM GUT SORTER 04/30/2022 11:06 PM GUT SORTER Grayson Ware MD CHEMISTRY [facility] [address] [place] [address], * (ABNORMAL) Lipid Panel AM (04/30/2022 1:02 AM GUT SORTER) Pathologist [facility] CHOLESTEROL,TOTAL 146 mg/dL 023 1:33 AM GUT SORTER [facility] Comment: Cholesterol, Total Reference Ranges Desirable <200 mg/dL Borderline 200-239 mg/dL High >=240 mg/dL TRIGLYCERIDES 115 <150 mg/dL 04/30/2022 1:33 AM GUT SORTER [facility] HDL CHOLESTEROL 30(L) >40 mg/dL 1:33 AM GUT SORTER [facility] NON-HDL CHOLESTEROL 116 <145 mg/dl 04/30/2022 1:33 AM GUT SORTER [facility] CHOL/HDL RATIO 4.87(H) <4.50 04/30/2022 1:33 AM GUT SORTER [facility] LDL CHOLESTEROL 93 <=130 mg/dL 04/30/2022 1:33 AM GUT SORTER [facility] VLDL CHOLESTEROL 23(L) >30 mg/dL 04/30/19 1:33 AM GUT SORTER [facility] PROVIDER ORDERED STATUS RANDOM 04/30/2022 1:33 AM [facility] Blood BLOOD SPECIMEN / Unknown Non-Lab Venipuncture / Unknown 04/30/2022 1:02 AM GUT SORTER 04/30/2022 1:02 AM GUT SORTER Dionisio Chaidez MD CHEMISTRY [facility] [address] [place] [address], from Last 3 Months or Most Recently Relevant to Health Maintenance Advance Directives * Full Code (Latest Code Status on File) Date Activated Date Inactivated Comments 04/29/2022 6:27 PM 05/04/2022 1:58 PM Question Answer Comments Code Status Discussion: Unable to Assess Preferences, Provider to review later Care Teams Police Superintendent Relationship Specialty Start Date End Date Juan Carlos Mcqueen MD PCP - General Family Practice 05/10/22 Renato Hayward MD [address] [place] [address] Cardiovascular Disease 05/12/22 Nurses, Advanced Heart Failure [address] [place] [address] Advanced Heart Failure/Transplant Card 05/12/22
--- OUTSIDE RECORDS SUMMARY | 2023-06-23 09:42 | XMS_ITS | Clinical Summary ---
Author Name Unknown Organization [place] Address [address] [facility] [place] [address] Care Team Providers Care Academic Dean Name Role Phone Unavailable Primary Care Provider [...] tablet Take 40 mg by mouth daily Active metoprolol succinate ER (TOPROL-XL) 100 MG 24 hr tablet Take 100 mg by mouth daily Active naltrexone (DEPADE/REVIA) 50 MG tablet Take 50 mg by mouth daily Active ondansetron (ZOFRAN) 4 MG tablet Take 4 mg by mouth every 6 hours as needed for nausea Active cloNIDine (CATAPRES) 0.2 MG tablet Take 1 tablet by mouth in the morning and 2 tablets at bedtime Active clonazePAM (KLONOPIN) 1 MG tablet Take 1/2 tablet by mouth in the morning, 1/2 tablet in the afternoon, and 1 tablet at bedtime Active omeprazole (PRILOSEC OTC) 20 MG EC tablet Take 20 mg by mouth daily Active oxymetazoline (AFRIN) 0.05 % nasal spray [place] 2 sprays into both nostrils daily as needed Active gabapentin (NEURONTIN) 400 MG capsule Take 1 capsule (400 mg) by mouth 3 times daily For 3 days, then twice daily for 1 day, then once daily on day 5, then stop 12 capsule 08/02/2020 Active Active Problems Problem Noted Date Diagnosed Date Alcohol abuse 11/18/2015 Health Correction 05/06/2011 Overview: X EMERGENCY CARE PLAN Presenting Problem Signs and Symptoms Treatment Plan Questions or concerns during clinic hours I will call the clinic directly Questions or concerns outside clinic hours I will call the 24 hour nurse line at [phone] Patient needs to schedule an appointment I will call the 24 hour scheduling team at [phone] or clinic directly Same day treatment I will call the clinic first, nurse line if after hours, urgent care and express care if needed DX V65.8 REPLACED WITH [id number] HEALTH RETIREMENT (06/11/2012) PIH ( induced hypertension) 10/11/2010 Overview: [...] PLAN 1975 FIT 1975 FLEX SIG 1975 MAMMO SCREENING 1975 sDNA (Cologuard) 1975 Pneumococcal Vaccine: Pediatrics (0 to 5 Years) and At-Risk Patients (6 to 64 Years) (1 of 2 - PCV) 08/24/1983 COLONOSCOPY 08/24/1987 COLORECTAL CANCER SCREENING 08/24/1987 HEPATITIS C SCREENING 08/24/1995 HEPATITIS B IMMUNIZATION (1 of 3 - 19+ 3-dose series) 1996 YEARLY PREVENTIVE VISIT 08/25/2010 08/25/2009, 05/14 PHQ-9 10/21/2011 04/22/2011, 10/26/2010 PAP 01/11/2012 01/10/2011, 05/05, 08/25/2009, Additional history exists LIPID 2017 DTAP/TDAP/TD IMMUNIZATION (2 - Td or Tdap) 03/06/2019 03/06/2009 COVID-19 Vaccine ( season) 2022 INFLUENZA VACCINE (#1) 2022 12/14/2005 GLUCOSE 08/03/2023 08/02/2020, 11/04, 04/20/2011, Additional history exists HIV SCREENING Completed 05/11/2010, 05/03/2004 HPV IMMUNIZATION [...] this topic Medical Devices Implanted Type Area Licensed Acupuncturist Device Identifier Shelf Expiration Date Model / Serial / Lot Device Essure [id number] Implanted:Qty: 2 on 02/09/2011 at [facility] Bilateral: Fallopian Tube [employer] [id number] / / [id number] Procedures Procedure Name Priority Date/Time Associated Diagnosis Comments COMPREHENSIVE METABOLIC PANEL STAT 08/02/2020 3:50 PM CDT Uncomplicated alcohol dependence (H) PAP IMAGED THIN LAYER SCREEN Routine 01/10/2011 3:26 PM APPLICATIONS SUPPORT LEAD Routine follow-up HIV 1 AND 2 ANTIBODY (QUEST) Routine 05/11/2010 10:35 AM APPLICATIONS SUPPORT LEAD Supervision of other normal from Last 3 Months or Most Recently Relevant to Health Maintenance Results * (ABNORMAL) Comprehensive metabolic panel (08/02/2020 3:50 PM CDT) Sodium 140 133 - 144 mmol/L 08/02/2020 7:23 PM CDT [facility] Potassium 3.9 3.4 - 5.3 mmol/L 08/02/2020 7:23 PM CDT [facility] Chloride 105 94 - 109 mmol/L 08/02/2020 7:23 PM CDT [facility] Carbon Dioxide 29 20 - 32 mmol/L 08/02/2020 7:28 PM CDT [facility] Anion Gap 6 3 - 14 mmol/L 08/02/2020 7:28 PM CDT [facility] Glucose 116(H) 70 - 99 mg/dL 08/02/2020 7:28 PM CDT [facility] Urea Nitrogen 8 7 - 30 mg/dL 08/02/2020 7:28 PM CDT [facility] Creatinine 0.83 0.52 - 1.04 mg/dL 08/02/2020 7:28 PM CDT [facility] GFR Estimate 86 >60 mL/min/{1 .73_m2} 08/02/2020 7:28 PM CDT [facility] Comment: Non GFR Calc Starting 02/20/2018, serum creatinine based estimated GFR (eGFR) will be calculated using the Chronic Kidney Disease Epidemiology Collaboration (CKD-EPI) equation. GFR Estimate If Black >90 >60 mL/min/{1 .73_m2} 08/02/2020 7:28 PM CDT [facility] Comment: GFR Calc Starting 02/20/2018, serum creatinine based estimated GFR (eGFR) will be calculated using the Chronic Kidney Disease Epidemiology Collaboration (CKD-EPI) equation. Calcium 8.8 8.5 - 10.1 mg/dL 08/02/2020 7:28 PM CDT [facility] Bilirubin Total 0.3 0.2 - 1.3 mg/dL 08/02/2020 7:31 PM CDT [facility] Albumin 3.8 3.4 - 5.0 g/dL 08/02/2020 7:31 PM CDT [facility] Protein Total 7.4 6.8 - 8.8 g/dL 08/02/2020 7:31 PM CDT [facility] Alkaline Phosphatase 102 40 - 150 U/L 08/02/2020 7:31 PM CDT [facility] ALT 156(H) 0 - 50 U/L 08/02/2020 7:31 PM CDT [facility] AST 126(H) 0 - 45 U/L 08/02/2020 7:31 PM CDT [facility] Blood 08/02/2020 3:50 PM CDT 08/02/2020 4:06 PM CDT Ezra Craig MD LAB - BLOOD ORDERABL ES [facility] [address] [place] [address] * PAP imaged thin layer, screen (01/10/2011 3:26 PM APPLICATIONS SUPPORT LEAD) PAP LLOYD Wells Report Patient Name: KADIE MOSS MR#: [id number] Specimen #: [id number] Collected: 01/10/2011 Received: 01/11/2011 Reported: 01/12/2011 13:02 Ordering Phy(s): GRZEGORZ DAVID SPECIMEN/STAIN PROCESS: Pap imaged thin layer prep screening (Surepath, FocalPoint with guided screening) ? Pap-Cyto x 1, Reflex HPV x 1 SOURCE: Cervical, endocervical Pap imaged thin layer prep screening (Surepath, FocalPoint with guided screening) SPECIMEN ADEQUACY: Satisfactory for evaluation. -Transformation zone component present. CYTOLOGIC INTERPRETATION: Negative for Intraepithelial Lesion or Malignancy Electronically signed out by: NEAL Brown ??(ASCP) Processed and screened at [facility] CLINICAL HISTORY: LMP: 12/31/2010 Post-, Previous normal pap Date of Last Pap: 05/27/2010, Papanicolaou Test Limitations: ??Cervical cytology is a screening test with limited sensitivity; regular screening is critical for cancer prevention; Pap tests are primarily effective for the diagnosis/preventi on of squamous cell carcinoma, not adenocarcinomas or other cancers. TESTING LAB LOCATION: [facility] [address] [place], [place] ??[address] COLLECTION SITE: Client: ??[facility] Location: [facility] (R) [facility] Cytologic material (specimen) 01/10/2011 3:26 PM APPLICATIONS SUPPORT LEAD 01/11/2011 10:49 AM APPLICATIONS SUPPORT LEAD Grzegorz David MD LAB - OPTIME CLINICA L SPECIMEN Performing Organization Address City/[facility]/ZIP Co de Phone Number COPATH * HIV 1 and 2 Antibody (05/11/2010 10:35 AM APPLICATIONS SUPPORT LEAD) HIV 1&2 Antibody Negative NEG [facility] Blood specimen (specimen) 05/11/2010 10:35 AM APPLICATIONS SUPPORT LEAD 05/11/2010 10:40 AM APPLICATIONS SUPPORT LEAD Grzegorz David MD LAB - BLOOD ORDERABL ES [facility] from Last 3 Months or Most Recently Relevant to Health Maintenance Advance Directives For more information, please contact: [phone] * Full Code (Latest Code Status on File) Date Activated Date Inactivated Comments 11/18/2015 12:49 AM 11/20/2015 4:26 PM
--- OUTSIDE RECORDS SUMMARY | 2023-06-23 09:43 | XMS_ITS | Referral Summary ---
Author Name Unknown Organization [place] Address [address] [facility] [place] [address] Care Team Providers Care Solar System Installer Name Role Phone Unavailable Primary Care Provider [...] Active oxymetazoline (AFRIN) 0.05 % nasal spray [place] 2 sprays into both nostrils daily as needed Active gabapentin (NEURONTIN) 400 MG capsule Take 1 capsule (400 mg) by mouth 3 times daily For 3 days, then twice daily for 1 day, then once daily on day 5, then stop 12 capsule 08/02/2020 Active Active Problems Problem Noted Date Diagnosed Date Alcohol abuse 11/18/2015 Health [facility] 05/06/2011 Overview: X EMERGENCY CARE PLAN Presenting Problem Signs and Symptoms Treatment Plan Questions or concerns during clinic hours I will call the clinic directly Questions or concerns outside clinic hours I will call the 24 hour nurse line at [phone] Patient needs to schedule an appointment I will call the 24 hour scheduling team at [phone] or clinic directly Same day treatment I will call the clinic first, nurse line if after hours, urgent care and express care if needed DX V65.8 REPLACED WITH [id number] HEALTH JAIL (06/11/2012) PIH ( induced hypertension) 10/11/2010 Overview: [...] on file Medical Devices Implanted Type Area Oracle Business Intelligence Developer Device Identifier Shelf Expiration Date Model / Serial / Lot Device Essure [id number] Implanted:Qty: 2 on 02/09/2011 at [facility] Bilateral: Fallopian Tube [employer] [id number] / / [id number] Procedures Procedure Name Priority Date/Time Associated Diagnosis Comments COMPREHENSIVE METABOLIC PANEL STAT 08/02/2020 3:50 PM CDT Uncomplicated alcohol dependence (H) PAP IMAGED THIN LAYER SCREEN Routine 01/10/2011 3:26 PM CROSS ENTERPRISE INTEGRATOR Routine follow-up HIV 1 AND 2 ANTIBODY (QUEST) Routine 05/11/2010 10:35 AM CROSS ENTERPRISE INTEGRATOR Supervision of other normal from Last 3 Months or Most Recently Relevant to Health Maintenance Results * (ABNORMAL) Comprehensive metabolic panel (08/02/2020 3:50 PM CDT) Sodium 140 133 - 144 mmol/L 08/02/2020 7:23 PM CDT [facility] Potassium 3.9 3.4 - 5.3 mmol/L 08/02/2020 7:23 PM CDT [facility] Chloride 105 94 - 109 mmol/L 08/02/2020 7:23 PM CDT [facility] Carbon Dioxide 29 20 - 32 mmol/L 08/02/2020 7:28 PM CDT [facility] Anion Gap 6 3 - 14 mmol/L 08/02/2020 7:28 PM CDT [facility] Glucose 116(H) 70 - 99 mg/dL 08/02/2020 7:28 PM CDT [facility] Urea Nitrogen 8 7 - 30 mg/dL 08/02/2020 7:28 PM CDT [facility] Creatinine 0.83 0.52 - 1.04 mg/dL 08/02/2020 7:28 PM CDT [facility] GFR Estimate 86 >60 mL/min/{1 .73_m2} 08/02/2020 7:28 PM CDT [facility] Comment: Non GFR Calc Starting 02/20/2018, serum creatinine based estimated GFR (eGFR) will be calculated using the Chronic Kidney Disease Epidemiology Collaboration (CKD-EPI) equation. GFR Estimate If Black >90 >60 mL/min/{1 .73_m2} 08/02/2020 7:28 PM CDT [facility] Comment: GFR Calc Starting 02/20/2018, serum creatinine based estimated GFR (eGFR) will be calculated using the Chronic Kidney Disease Epidemiology Collaboration (CKD-EPI) equation. Calcium 8.8 8.5 - 10.1 mg/dL 08/02/2020 7:28 PM CDT [facility] Bilirubin Total 0.3 0.2 - 1.3 mg/dL 08/02/2020 7:31 PM CDT [facility] Albumin 3.8 3.4 - 5.0 g/dL 08/02/2020 7:31 PM CDT [facility] Protein Total 7.4 6.8 - 8.8 g/dL 08/02/2020 7:31 PM CDT [facility] Alkaline Phosphatase 102 40 - 150 U/L 08/02/2020 7:31 PM CDT [facility] ALT 156(H) 0 - 50 U/L 08/02/2020 7:31 PM CDT [facility] AST 126(H) 0 - 45 U/L 08/02/2020 7:31 PM CDT [facility] Blood 08/02/2020 3:50 PM CDT 08/02/2020 4:06 PM CDT Ezra Craig MD LAB - BLOOD ORDERABL ES [facility] [address] [place] [address] * PAP imaged thin layer, screen (01/10/2011 3:26 PM CROSS ENTERPRISE INTEGRATOR) PAP LLOYD Wells Report Patient Name: KADIE MOSS MR#: [id number] Specimen #: [id number] Collected: 01/10/2011 Received: 01/11/2011 Reported: 01/12/2011 13:02 [...] NEAL Brown ??(ASCP) Processed and screened at [facility] CLINICAL HISTORY: LMP: 12/31/2010 Post-, Previous normal pap Date of Last Pap: 05/27/2010, Papanicolaou Test Limitations: ??Cervical cytology is a screening test with limited sensitivity; regular screening is critical for cancer prevention; Pap tests are primarily effective for the diagnosis/preventi on of squamous cell carcinoma, not adenocarcinomas or other cancers. TESTING LAB LOCATION: [address] ??[address] COLLECTION SITE: Client: ??[facility] Location: [facility] (R) [facility] Cytologic material (specimen) 01/10/2011 3:26 PM CROSS ENTERPRISE INTEGRATOR 01/11/2011 10:49 AM CROSS ENTERPRISE INTEGRATOR Grzegorz David MD LAB - OPTIME CLINICA L SPECIMEN Performing Organization Address [facility] Co de Phone Number COPATH * HIV 1 and 2 Antibody (05/11/2010 10:35 AM CROSS ENTERPRISE INTEGRATOR) HIV 1&2 Antibody Negative NEG [facility] Blood specimen (specimen) 05/11/2010 10:35 AM CROSS ENTERPRISE INTEGRATOR 05/11/2010 10:40 AM CROSS ENTERPRISE INTEGRATOR Grzegorz David MD LAB - BLOOD ORDERABL ES Performing Organization Address City/[facility]/ZIP Co de Phone Number [facility] from Last 3 Months or Most Recently Relevant to Health Maintenance Advance Directives For more information, please contact: [phone] * Full Code (Latest Code Status on File) Date Activated Date Inactivated Comments 11/18/2015 12:49 AM 11/20/2015 4:26 PM
--- OUTSIDE RECORDS SUMMARY | 2023-06-23 09:43 | XMS_ITS | Encounter Summary ---
Author Name Unknown Organization [place] Address [address] [facility] [place] [address] Care Team Providers Care Extracorporeal Technician Name Role Phone Unavailable Primary Care Provider Unavailabl e Reason for Visit * Reason Onset Date Comments MH/CD Inpatient 11/17/2015 Encounter Details Date Type Department Care Team ([facility] st Contact Info) Description 11/17/2015 Telephone [facility] Behavioral Health Intake [address] [place] [address] Generic, Behavioral Intake, MH/CD Inpatient [...]
--- OUTSIDE RECORDS SUMMARY | 2023-06-23 09:43 | XMS_ITS | Encounter Summary ---
Author Name Unknown Organization [place] Address [address] [facility] [place] [address] Care Team Providers Care Route Manager Name Role Phone Niko Pryor MD Primary Care Provider [phone] Jayden Santo MD Primary Care Provider Encounter Details Date Type Department Care Team (Late st Contact Info) Description 11/10/2010 [facility] [address] [place] [address] Olive Brown, [address] [place] [address] [place] [facility] Delivery Record Social History Tobacco Use [...] as of this encounter Visit Diagnoses Diagnosis [place] [facility] Delivery Record- Primary documented in this encounter Care Teams Route Manager Relationship Specialty Start Date End Date Niko Pryor MD [address] [place] [address] PCP - General 04/20/01 04/30/11 Jayden Santo MD [address] [place] [id number] PCP - General Internal Medicine 05/01/11 03/06/15 documented as of this encounter
--- OUTSIDE RECORDS SUMMARY | 2023-06-23 09:43 | XMS_ITS | Encounter Summary ---
Author Name Unknown Organization [place] Address [address] [facility] [place] [address] Care Team Providers Care Strings Teacher Name Role Phone Unavailable Primary Care Provider Unavailabl e Reason for Visit * Reason Onset Date Comments CD Outpatient 11/18/2015 lodging plus Other Encounter Details Date Type Department Care Team ([facility] Contact Info) Description 11/18/2015 Telephone [facility] Behavioral Health Intake [address] [place] [phone] Generic, Behavioral Intake, CD Outpatient (lodging plus); [...] Patient's contact numbers are: Home: Parent's home: [phone] Thank you * Telephone Encounter - Natalie Friedman LADC - 11/19/2015 11:16 AM CDT SBAR Name: Kadie Moss Date of : 1975 Age: [age] year old Gender: female Insurance: [facility] Precipitating Event: Treatment due to own awareness [...] No identified risk Additional Info as needed: * Telephone Encounter - Kassy Castillo - 11/18/2015 9:31 AM CDT Placed on priority list. Kassy Castillo * Telephone Encounter - Kassy Castillo - 11/18/2015 9:30 AM CDT ----- Message from Natalie Friedman sent at 11/18/2015 8:39 AM CDT ----- Regarding: LP Referral Patient is requesting LP [facility]'s [facility] Transfer date TBD (/Monday?) Please place on priority list Thank you documented in this encounter Plan of Treatment Not on file documented as of this encounter Visit Diagnoses Not on filedocumented in this encounter
--- NOTE | 2023-06-23 10:25 | W.ANESCHARGE ---
Anesthesia Charges Start Date/Time Anesthesia Start Date: 06/23/23 Anesthesia Start Time: 10:18 Stop Date/Time Anesthesia Stop Date: 06/23/23 Anesthesia Stop Time: 10:43
--- NOTE | 2023-06-23 10:45 | W.ANESCHARGE ---
Anesthesia Charges Start Date/Time Anesthesia Start Date: 06/23/23 Anesthesia Start Time: 10:18 Stop Date/Time Anesthesia Stop Date: 06/23/23 Anesthesia Stop Time: 10:43
== END 2023-06-23 09:41 | disposition home or self-care (01) ==
LOC: OP CLINIC 09:41
PROVIDERS: PCP Family Medicine; Visit Provider Internal Medicine
DX: Z12.11 Encounter for screening for malignant neoplasm of colon (principal); K63.5 Polyp of colon; K62.1 Rectal polyp
CPT/HCPCS: 00811; 45380; 88305; J2704

== ENCOUNTER 2023-12-18 18:46 | Emergency (ER) | payer BC, SELFPAY ==
[2023-12-18] VITALS (33 sets, daily range): BP systolic 117–144; BP diastolic 75–89; PULSE 63–79; RESP 16–18; TEMP 36.6; O2SAT 95–99; BMI 24.8
--- NOTE | 2023-12-18 19:31 | ED_ITS ---
HPI - Chest Pain General Date Seen: 12/18/23 Chief Complaint: Chest Pain Stated Complaint: Chest tightness/SOB Time Seen by Provider: 12/18/23 18:54 History of Present Illness HPI narrative: 48-year-old female with history of myocarditis years ago presenting to the ER today with chest pain. She also has history of tobacco abuse, alcohol abuse, now sober, hyperlipidemia She has had cold symptoms for couple of weeks. Her children have also been sick with similar cold symptoms. They have all had negative at home COVID test. Her children admitted to the Dr. Perez treated with course of Azithromycin and steroids. She has had fatigue, chest pain, shortness of breath with walking and at rest. Her cough and nasal congestion about ongoing about 2 or 3 weeks but she started developing some chest pain and pins and needles in her chest about 2 weeks ago. Her chest pain has been getting worse for the past couple of days. She has been feeling a bit short of breath, with exertion but also at rest. There is no real exertional component to her chest pain. It is fairly continuous. However when she was watching TV this evening, her chest pain got worse. Her chest pain is located in the center of her chest. And radiates to her left shoulder blade. No radiation down her arm or up her jaw or through to her interscapular back. The chest pain is not ripping and tearing. Chest pain is dissimilar to her episode of myocarditis 2 years ago. She has noted a little bit of edema in her ankles over the past couple of weeks. However she is on amlodipine for blood pressure knows the peripheral edema can be a side effect She has no recent travel. No history of DVT or PE. Per [facility] care link she sees edi analyst [facility]. Last seen in August 2023. According to that note, ?47 year old Fwith a past medical history including but not limited to hypertension, recovering alcohol abuse on Atabuse, depression/anxiety, previous tobacco use. ? She was admitted from April to May of 2022 after presented with chest pain and elevated troponin. She underwent LHC with normal coronary arteries and RHC with shock hemodynamics. She was admitted to ICU for iontrope support and diuresis. MRI showed acute myopericarditis. She was seen in follow up in May was improving at that time. She had follow up MRI and echo in August 2022 that showed a normalized EF and resolution of her acute myocarditis. Cardiac MRI 05/02/22 1. Diffuse biventricular acute myocardial edema* with a small region of mid- myocardial basal inferolateral fibrosis. Findings appear most consistent with diffuse myocarditis. 2. Late enhancement of pericardium overlying the right ventricular free wall, consistent with acute pericarditis. Small circumferential pericardial effusion. 3. Left ventricle exhibits moderate basal septal thickening and mildly reduced systolic function. Calculated EF is 45%. 4. Right ventricle exhibits normal cavity size with reduced systolic function. Calculated EF is 42%. 5. No myocardial infarction. ? Cardiac MRI 08/17/22 1. Resolution of diffuse myocardial edema with residual subepicardial fibrosis in the basal inferolateral wall. 2. Normal left ventricular size, wall thickness, and systolic function. Calculated EF is 60%. 3. Normal right ventricular size with borderline reduced systolic function. Calculated EF is 50%. 4. Compared to prior study on 05/02/22: In addition to resolution of edema, LV and RV systolic function have improved. Findings are consistent with resolution of diffuse myocarditis. ? Echo 08/17/22 Final Impressions: Limited Echocardiogram performed ?1. Normal LV size, mildly increased wall thickness, estimated EF of 60 - 65%. ?2. The mitral valve is normal, trace regurgitation. Comparison Compared to prior exam of 04/30/22: - LVEF is now normal - LV wall thickness is significantly decreased today (12 vs 23 mm) According to her cardiology note from August they are going to increase her losartan to 25 mg b.i.d. and Coreg to 12.5 mg b.i.d. because her blood pressure was not optimally controlled. She was already on clonidine for blood pressure. She was post to have an outpatient cardiac MRI in follow-up. Cardiac MRI 08/27/23 FINAL IMPRESSION ? 1. Quantitative LVEF 65 %. LV systolic function is normal. LV cavity size is normal. LV wall thickness is normal. 2. A small focus of midwall myocardial fibrosis again noted on late gadolinium enhancement imaging in the basal inferolateral wall consistent with prior myocarditis. LV scar size is 1 % of LV mass. No myocardial edema. No myocardial infarction or amyloidosis. No diffuse fibrosis on ex tracellular volume (ECV) measures. No siderosis or Fabry?s disease. No cardiac thrombus. 3. Quantitative RVEF 57 %. RV systolic function is normal. RV cavity size is normal. 4. There is no pericardial effusion. Pericardium is normal. 5. No significant valve disease. 6. There is no pleural effusion. Related Data Home Medications ?Medication ?Instructions ?Recorded ?Confirmed omeprazole 20 mg capsule,delayed 20 mg PO QDAY 08/31/21 11/01/23 release amlodipine 5 mg tablet 5 mg PO DAILY 11/01/23 12/18/23 carvedilol 12.5 mg tablet 12.5 mg PO BID 11/01/23 12/18/23 furosemide 20 mg tablet 40 mg PO QAM PRN 11/01/23 12/18/23 losartan 50 mg tablet 50 mg PO BID 11/01/23 12/18/23 Previous Rx's ?Medication ?Instructions ?Recorded ondansetron 4 mg disintegrating 4 mg PO Q4-6H PRN nausea and 03/22/23 tablet vomiting #15 tabs clonidine HCl 0.3 mg tablet 0.3 mg PO QHS #90 tabs 06/16/23 disulfiram 250 mg tablet See Rx Instructions .Route 08/23/23 .COMPLEX #90 tabs citalopram 40 mg tablet 40 mg PO DAILY #90 tabs 09/26/23 bupropion HCl 150 mg 24 hr tablet, 150 mg PO QAM #90 tabs 11/22/23 extended release clonazepam 1 mg tablet See Rx Instructions PO TID #45 tabs 11/30/23 albuterol sulfate 90 mcg/actuation 1 inh inhalation QID PRN shortness 12/19/23 aerosol inhaler of breath or wheezing #8.5 grams doxycycline hyclate 100 mg capsule 100 mg PO BID #14 caps 12/19/23 prednisone 20 mg tablet 40 mg (2 x 20 mg) PO DAILY #10 tabs 12/19/23 Allergies Allergy/AdvReac Type Severity Reaction Status Date / Time No Known Drug Allergies Allergy Verified 11/01/23 14:08 [facility] Medical History Cervical dysplasia ?N87.9 - Dysplasia of cervix uteri, unspecified (ICD-10) Surgical History S/P LEEP (05/30/22) ?Z98.890 - Other specified postprocedural states (ICD-10) History of loop electrosurgical excision procedure (LEEP) (2005) ?Z98.890 - Other specified postprocedural states (ICD-10) History of tubal ligation ?Z98.51 - Tubal ligation status (ICD-10) Family History Paternal Grandfather Coronary artery disease Father Alcoholism High blood pressure High cholesterol Brother Alcoholism Maternal Grandmother Breast cancer Other Diabetes Heart disease Social History What is your current living situation?: I presently have a place to live Problems where you live: no known problems In the past 12 months, utilities in danger of being shut off: no In past 12 months, lack of transportation kept you from medical appts, meetings, work, or getting things needed for daily living: no In the past 12 mos, have been you worried that your food would run out before you had money to buy more?: sometimes true In the past 12 mos, the food you bought just didn't last and you didn't have money to buy more?: never true Smoking Status: Current every day smoker Non-prescribed substance use: denies use How often does anyone, including family, friends and others, physically hurt you : never How often does anyone, including family, friends and others, insult or talk down to you: never How often does anyone, including family, friends and others, threaten you with harm: never How often does anyone, including family, friends and others, scream or curse at you: rarely Little interest or pleasure in doing things: several days Feeling down, depressed, or hopeless: several days Exam Narrative Exam Narrative: Constitutional: Appears well-developed and well-nourished. Alert. Conversant. Non toxic. HENT: Head: Atraumatic. Nose: Nose normal. Mouth/Throat: Oral mucosa is clear and moist. no trismus. Pharynx normal. Tonsils symmetric. No tonsillar enlargement, erythema, or exudate. Eyes: Conjunctivae normal. EOM normal. Pupils equal, round, and reactive to light. No scleral icterus. Neck: Normal range of motion. Neck supple. No tracheal deviation present. No JVD Cardiovascular: Normal rate, regular rhythm. No gallop. No friction rub. No murmur heard. Symmetric radial and PT artery pulses Pulmonary/Chest: Effort normal. No stridor. No respiratory distress. No wheezes. No rales. No rhonchi . No tenderness. Abdominal: Soft. Bowel sounds normal. No distension. No mass. No tenderness. No rebound. No guarding. Musculoskeletal: RUE: Normal range of motion. No tenderness. No deformity LUE: Normal range of motion. No tenderness. No deformity RLE: Normal range of motion. Trace edema. No tenderness. No deformity LLE: Normal range of motion. Trace edema. Small bruise just anterior to her left medial malleolus which patient reports is because she bumped her leg a co uple of days ago. No tenderness. No deformity Lymph: No cervical adenopathy. Neurological: Alert and oriented to person, place, and time. Normal strength. CN II-VII intact. No sensory deficit. GCS eye subscore is 4. GCS verbal subscore is 5. GCS motor subscore is 6. Normal coordination Skin: Skin is warm and dry. No rash noted. No pallor. Normal capillary refill. Psychiatric: Normal mood. Normal affect. Const Vital Signs, click to edit/add: Vital Signs - 24 hr 12/18/23 18:57 12/18/23 19:04 12/18/23 19:05 Temperature 97.9 F Pulse Rate 71 74 Pulse Rate [Pulse Oximeter] 79 Respiratory Rate 18 Blood Pressure 131/87 Blood Pressure [Right Upper Arm] 144/84 H Pulse Oximetry 98 96 95 Oxygen Delivery Method Room Air 12/18/23 19:15 12/18/23 19:30 12/18/23 19:32 Temperature Pulse Rate 72 73 68 Pulse Rate [Pulse Oximeter] Respiratory Rate Blood Pressure 117/75 Blood Pressure [Right Upper Arm] Pulse Oximetry 98 97 97 Oxygen Delivery Method 12/18/23 19:45 12/18/23 20:00 12/18/23 20:01 Temperature Pulse Rate 67 64 66 Pulse Rate [Pulse Oximeter] Respiratory Rate Blood Pressure 127/88 Blood Pressure [Right Upper Arm] Pulse Oximetry 97 98 96 Oxygen Delivery Method 12/18/23 20:15 12/18/23 20:30 12/18/23 20:32 Temperature Pulse Rate 65 67 70 Pulse Rate [Pulse Oximeter] Respiratory Rate 18 Blood Pressure 121/79 Blood Pressure [Right Upper Arm] Pulse Oximetry 98 97 96 Oxygen Delivery Method 12/18/23 20:47 12/18/23 21:00 12/18/23 21:01 Temperature Pulse Rate 66 70 66 Pulse Rate [Pulse Oximeter] Respiratory Rate Blood Pressure 132/78 Blood Pressure [Right Upper Arm] Pulse Oximetry 99 98 98 Oxygen Delivery Method 12/18/23 21:02 12/18/23 21:15 12/18/23 21:30 Temperature Pulse Rate 66 65 66 Pulse Rate [Pulse Oximeter] Respiratory Rate Blood Pressure Blood Pressure [Right Upper Arm] Pulse Oximetry 98 98 97 Oxygen Delivery Method 12/18/23 21:32 12/18/23 21:33 12/18/23 21:45 Temperature Pulse Rate 65 65 66 Pulse Rate [Pulse Oximeter] Respiratory Rate 16 Blood Pressure 123/81 Blood Pressure [Right Upper Arm] Pulse Oximetry 96 96 98 Oxygen Delivery Method 12/18/23 22:29 12/18/23 22:30 12/18/23 22:33 Temperature Pulse Rate 66 70 Pulse Rate [Pulse Oximeter] Respiratory Rate 18 Blood Pressure Blood Pressure [Right Upper Arm] Pulse Oximetry 98 99 99 Oxygen Delivery Method 12/18/23 22:35 12/18/23 22:36 12/18/23 22:45 Temperature Pulse Rate 64 70 67 Pulse Rate [Pulse Oximeter] Respiratory Rate Blood Pressure 118/88 Blood Pressure [Right Upper Arm] Pulse Oximetry 99 97 98 Oxygen Delivery Method 12/18/23 23:00 12/18/23 23:01 12/18/23 23:15 Temperature Pulse Rate 70 69 63 Pulse Rate [Pulse Oximeter] Respiratory Rate Blood Pressure 135/89 Blood Pressure [Right Upper Arm] Pulse Oximetry 98 96 97 Oxygen Delivery Method 12/18/23 23:30 12/18/23 23:31 12/18/23 23:45 Temperature Pulse Rate 63 65 65 Pulse Rate [Pulse Oximeter] Respiratory Rate Blood Pressure 127/85 Blood Pressure [Right Upper Arm] Pulse Oximetry 97 96 96 Oxygen Delivery Method 12/19/23 00:00 12/19/23 00:01 12/19/23 00:01 Temperature Pulse Rate 64 69 69 Pulse Rate [Pulse Oximeter] Respiratory Rate Blood Pressure 95/69 95/69 Blood Pressure [Right Upper Arm] Pulse Oximetry 95 95 95 Oxygen Delivery Method 12/19/23 00:01 Temperature Pulse Rate 69 Pulse Rate [Pulse Oximeter] Respiratory Rate Blood Pressure 95/69 Blood Pressure [Right Upper Arm] Pulse Oximetry 95 Oxygen Delivery Method Course Vital Signs Vital signs: Initial Vital Signs Temperature 97.9 F 12/18/23 18:57 Temperature Source Temporal Artery Scan 12/18/23 18:57 Pulse Rate 79 12/18/23 18:57 Respiratory Rate 18 12/18/23 18:57 Blood Pressure 144/84 H 12/18/23 18:57 Blood Pressure Mean 104 12/18/23 18:57 Pulse Oximetry 98 12/18/23 18:57 Oxygen Delivery Method Room Air 12/18/23 18:57 Vital Signs Temperature 97.9 F 12/18/23 18:57 Pulse Rate 79 12/18/23 18:57 Respiratory Rate 18 12/18/23 18:57 Blood Pressure 144/84 H 12/18/23 18:57 Pulse Oximetry 98 12/18/23 18:57 Oxygen Delivery Method Room Air 12/18/23 18:57 Temperature 97.9 F 12/18/23 18:57 Pulse Rate 69 12/19/23 00:01 Respiratory Rate 18 12/18/23 22:33 Blood Pressure 95/69 12/19/23 00:01 Pulse Oximetry 95 12/19/23 00:01 Oxygen Delivery Method Room Air 12/18/23 18:57 Medications Administered Medications: Discontinued Medications Generic Name Dose Route Start Last Admin Trade Name Freq PRN Reason Stop Dose Admin Aspirin 324 mg 12/18/23 19:38 12/18/23 20:35 Aspirin 81 Mg Tab.Chew PO 12/18/23 19:39 324 mg ONCE ONE Administration MDM - Chest Pain MDM Narrative Medical decision making narrative: This patient presents to the ER today for evaluation of symptoms that started wi th cough and URI symptoms about 2 or 3 weeks ago, now developing shortness of breath and chest pain for the past couple of weeks. Differential was broad. She had 2 of her children seen by her doctors and they were both sent home on steroids and antibiotics. It sounds like her Children's doctors were suspecting a possible community-acquired pneumonia. The patient is a smoker which raises risk for COPD but she has not actually wheezy on my exam today. It is possible that her shortness of breath could be related and summer fashion to bronchospasm. No evidence of palpitations, syncope or other cardiac dysrhythmia. We considered possible ACS, however workup with EKG and troponin is negative. Given time since onset of symptoms, overall would be low risk for acute coronary syndrome but because she had worsening of her chest pain tonight, we did check delta troponins which are normal. I do not think the patient needs to be admitted for further sets of enzymes. EKG shows no evidence for pericarditis. She does have a history of myocarditis 2 years ago. At this point troponin is normal. BNP level is normal. Inflammatory markers are reassuring. CT scan of her chest shows no evidence for pericardial effusion. She will need outpatient follow-up within the next couple of days for re-evaluation and if symptoms are not improving would consider getting repeat echo or cardiac imaging to look for EF. Chest x-ray shows no evidence for pneumonia, pneumothorax, pulmonary edema, pleural effusion, rib fracture, cardiomegaly. Mediastinum is normal on the x-ray. The patient has no ripping or tearing pain through to the back and has symmetric pulses on exam, no other acute neuro findings so I doubt aortic dissection. Risk of radiation and contrast exposure would outweigh the benefit of CT angiogram. We considered PE for this patient. D-dimer was abnormal, prompting CT PA. CT scan shows no evidence for PE. No signs of chest wall cellulitis, shingles, injury. Will try the patient on a course of antibiotics since she has had about 3 weeks of cough associated with the chest pain and shortness of breath and she is a smoker. Will start her on doxycycline. Also will try prednisone albuterol although she is not wheezing on her exam today. Consult the patient and smoking sensation. She and her are supportive and believe that she will be able to succeed this time. She will follow-up with her PCP for smoking cessation meds, if she needs them. With reasonable clinical confidence, I think the patient is safe for outpatient follow up. Discussed return precautions. Questions answered. Patient voices comfort with the plan. Incidentally, around the time of discharge I was informed by the patient's nurse that patient had infiltration of CT contrast dye into her right antecubital fossa during the CT scan. I had not previously been aware of this. I evaluated the patient arm. She did have some swelling extending from the distal 1/4 of her biceps to the proximal 5-6 cm of her radial/volar forearm. They skin was firm but not tender. No signs of pallor or impaired perfusion. Normal range of motion the elbow. Will monitor and treat supportively now with rest, elevation, ice packs as needed. Precautions for return to the ER reviewed. Lab Data Labs: Lab Results 12/18/23 12/18/23 12/18/23 Range/Units 19:39 20:05 22:05 WBC 10.69 (4.50-11.00) K/uL RBC 4.48 (4.00-5.20) m/uL Hgb 14.3 (12.0-16.0) gm/dL Hct 42.6 (33.0-51.0) % MCV 95 (80-100) fL MCH 32 (26-34) pg MCHC 34 (32-36) gm/dL RDW Coeff of Horacio 13.1 (11.5-15.5) % Plt Count 254 (140-440) K/uL Neut % (Auto) 69.0 (42.0-72.0) % Lymph % (Auto) 21.6 (20-44) % Greene % (Auto) 7.4 (0.0-11.0) % Eos % (Auto) 1.7 (0.0-7.0) % Baso % (Auto) 0.2 (0.0-3.0) % Neut # (Auto) 7.38 H (1.7-7.0) K/uL Lymph # (Auto) 2.31 (0.90-2.90) K/uL Greene # (Auto) 0.80 (0.00-0.90) K/UL Eos # (Auto) 0.18 (0.00-0.50) K/uL Baso # (Auto) 0.02 (0.00-0.30) K/uL Abs Immat Gran (auto) 0.01 (0.00-0.30) K/uL Imm/Tot Granulo (auto) 0.1 % D-Dimer Quant (PE/DVT) 0.66 H (0.00-0.50) ug/ml Sodium 136 (135-149) mmol/L Potassium 3.8 (3.6-5.1) mmol/L Chloride 102 (96-114) mmol/L Carbon Dioxide 26 (20-32) mmol/L Anion Gap 8 (7-15) mEq/L BUN 20 (5-24) mg/dL Creatinine 0.7 (0.5-1.5) mg/dL Estimated Creat Clear 83.07 Estimated GFR 108 ml/min Glucose 91 (60-115) mg/dL Lactate 1.0 (0.5-1.9) mmol/L Calcium 9.4 (8.4-10.6) mg/dL NT-Pro-B Natriuret Pep 46 pg/mL SARS-CoV-2 (PCR) Negative SARS-CoV-2 (Negative) Influenza Type A (PCR) Negative PCR FLU A (Negative) Influenza Type B (PCR) Negative PCR FLU B (Negative) POC Troponin I 0.00 L 0.01 (0.01-0.04) ng/ml Imaging Data Chest x-ray: Attestation: I have reviewed the pertinent imaging results. My impression: No acute infiltrates. Radiologist's impression: IMPRESSION: No acute cardiopulmonary process. CT scan - chest: Attestation: I have reviewed the pertinent imaging results. Radiologist's impression: IMPRESSION: 1. No pulmonary embolus. No CT evidence of right heart strain. 2. No acute intrathoracic pathology. ECG Data Interpretation: Normal sinus rhythm Rate: 71 SD: 136 QRS axis: Right axis deviation. Right bundle-branch block. ST segment/T wave: No ST segment elevation or depression. Artifact in lateral leads. QTc: 489 Discharge Plan Discharge Clinical Impression: Chest pain Patient Disposition: Home, Self-Care Condition: Stable Instructions: Chest Pain (DC) Additional Instructions: As we discussed, please come back to the ER right away if you have any worsening pain, worsening trouble breathing, high fever, bloody cough, or any concerns or if you get worse in any way. Please follow-up with your regular doctor within the next 2-4 days for recheck. Prescriptions: New prednisone 20 mg tablet 40 mg PO DAILY Qty: 10 0RF doxycycline hyclate 100 mg capsule 100 mg PO BID Qty: 14 0RF albuterol sulfate 90 mcg/actuation HFA aerosol inhaler 1 inh inhalation QID PRN (Reason: shortness of breath or wheezing) Qty: 8.5 0RF No Action omeprazole 20 mg capsule,delayed release(DR/EC) 20 mg PO QDAY carvedilol 12.5 mg tablet 12.5 mg PO BID furosemide 20 mg tablet 40 mg PO QAM PRN losartan 50 mg tablet 50 mg PO BID amlodipine 5 mg tablet 5 mg PO DAILY ondansetron 4 mg tablet,disintegrating 4 mg PO Q4-6H PRN (Reason: nausea and vomiting) Qty: 15 0RF clonidine HCl 0.3 mg tablet 0.3 mg PO QHS Qty: 90 3RF disulfiram 250 mg tablet See Rx Instructions .ROUTE .COMPLEX Qty: 90 0RF Dose Instruction: TAKE 1 TABLET BY MOUTH EVERY DAY Rx Instructions: TAKE 1 TABLET BY MOUTH EVERY DAY citalopram 40 mg tablet 40 mg PO DAILY Qty: 90 0RF bupropion HCl 150 mg tablet extended release 24 hr 150 mg PO QAM Qty: 90 1RF clonazepam 1 mg tablet See Rx Instructions PO TID Qty: 45 0RF Rx Instructions: 0.5-1 mg t.i.d. p.r.n. Follow Up/Referrals: Juan Carlos Mcqueen MD [Primary Care Provider] - Stand Alone Forms: [employer] Info Instructions
--- NOTE | 2023-12-18 19:38 | CRLHL7_ITS ---
For Patients: As a result of the Century Cures Act, medical imaging exams and procedure reports are released immediately into your electronic medical record. You may view this report before your referring provider. If you have questions, please contact your health care provider. INDICATION: Dyspnea. TECHNIQUE: Chest radiographs, 2 views. COMPARISON: Chest radiographs 03/31/2021. FINDINGS: Cardiovascular/Mediastinum: Normal heart size. Unremarkable. Lungs: No focal consolidation. Airways: Trachea remains midline. Pleura: No pleural effusions or pneumothorax. Bones: No acute osseous abnormalities. Upper abdomen: Unremarkable. IMPRESSION: No acute cardiopulmonary process. Dictated by Ta Conner MD @ 12/18/2023 9:37:00 PM (Electronically Signed)
[2023-12-18 20:16] LABS: Basophils Absolute Auto 0.02 K/uL (0.00-0.30); Basophils Percent Auto 0.2 % (0.0-3.0); Eosinophils Absolute Auto 0.18 K/uL (0.00-0.50); Eosinophils Percent Auto 1.7 % (0.0-7.0); Hematocrit 42.6 % (33.0-51.0); Hemoglobin* 14.3 gm/dL (12.0-16.0); Immature Granulocytes Abs Auto 0.01 K/uL (0.00-0.30); Immature Granulocytes Pct Auto 0.1 %; Lymphocytes Absolute Auto 2.31 K/uL (0.90-2.90); Lymphocytes Percent Auto 21.6 % (20-44); Mean Corpuscular HGB Conc 34 gm/dL (32-36); Mean Corpuscular Hemoglobin 32 pg (26-34); Mean Corpuscular Volume 95 fL (80-100); Monocytes Percent Auto 7.4 % (0.0-11.0); Neutrophils Absolute Auto 7.38 K/uL (1.7-7.0); Platelet Count* 254 K/uL (140-440); RDW Coefficient of Variation % 13.1 % (11.5-15.5); Red Blood Count 4.48 m/uL (4.00-5.20); White Blood Count* 10.69 K/uL (4.50-11.00)
[2023-12-18 20:21] LABS: Slide Review Reflex No
[2023-12-18 20:30] LABS: Chloride* 102 mmol/L (96-114); Potassium* 3.8 mmol/L (3.6-5.1); Sodium* 136 mmol/L (135-149)
--- OUTSIDE RECORDS SUMMARY | 2023-12-18 20:31 | XMS_ITS | Encounter Summary ---
Author Organization [place] Address [address] [place] [address] Care Team Providers Care Measurement And Verification Engineer Name Role Phone Unavailable Primary Care Provider Unavailabl e Reason for Visit * Reason Onset Date Comments CD Outpatient 11/18/2015 [facility] Other Encounter Details Date Type Department Care Team ([facility] Contact Info) Description 11/18/[address] [facility] Intake [address] [place] [id number] Generic, Behavioral Intake, CD Outpatient (lodging [facility]); [...] Patient's contact numbers are: Home: Parent's home: [phone] Thank you * Telephone Encounter - Natalie Friedman LADC - 11/19/2015 11:16 AM CDT SBAR Name: Kadie Moss Date of : 1975 Age: [age] year old Gender: female Insurance: [facility] Precipitating Event: Treatment due to own awareness [...] Referral Patient is requesting [facility] Transfer date TBD (/Monday?) Please place on priority list Thank you documented in this encounter Plan of Treatment Not on file documented as of this encounter Visit Diagnoses Not on filedocumented in this encounter
--- OUTSIDE RECORDS SUMMARY | 2023-12-18 20:31 | XMS_ITS | Clinical Summary ---
Author Organization [facility] Address [place], [place] [address] Care Team Providers Care Lace Roller Operator Name Role Phone Juan Carlos Mcqueen MD Primary Care Provider [phone] Renato Hayward MD Unavailable [phone] Nurses, Advanced Heart Failure Unavailable + Allergies No known active allergies Medications Medication Sig Dispensed Refills Start Date End Date Status citalopram (CELEXA) 40 mg tablet Take 40 mg by mouth every morning. 01/19/2022 Active clonazePAM (KLONOPIN) 1 mg tablet 1 mg 3 times daily if needed for Anxiety. 04/01/2022 Active disulfiram (ANTABUSE) 250 mg tablet 250 mg every morning. 04/08/2022 Active cloNIDine HCL (CATAPRES) 0.2 mg tabletIndications:Hype [...] every morning. 90 Tablet 3 05/05/2022 Active furosemide (LASIX) 20 mg tabletIndications:Og estive heart failure, unspecified HF chronicity, unspecified heart failure type (HC) Take 40 mg (2 tablets) twice a day until weight is back down to 143 lbs. Then start taking 20 mg (1 tablet) twice a day 90 Tablet 3 09/07/2022 Active losartan (COZAAR) 50 mg tabletIndications:Og estive heart failure, unspecified HF chronicity, unspecified heart failure type (HC),Other cardiomyopathy (HC),Hypertension Take 1 Tablet (50 mg) by mouth two times daily. 180 Tablet 3 09/05/2023 Active carvediloL (COREG) 12.5 mg tabletIndications:Othe r cardiomyopathy (HC),Hypertension Take 1.5 Tablets (18.75 mg) by mouth two times daily. 270 Tablet 3 09/14/2023 Active amLODIPine (Norvasc) 5 mg tabletIndications:Hype rtension Take 1 Tablet (5 mg) by mouth once daily. 90 Tablet 1 09/25/2023 Active Active Problems Problem Noted Date Diagnosed Date Anxiety 04/29/2022 Hypertension 04/29/2022 Cardiomyopathy 04/29/2022 Alcohol abuse 11/18/2015 Tobacco use disorder 05/11/2010 Overview (04/29/2022): Pt. Continues to smoke appx. Three cigarettes daily during . Panic disorder without agoraphobia 08/02/2007 Depressive disorder, not elsewhere classified Chest pain Encounters Date Type Department Care Team Description 10/18/2023 Telephone [facility] [place] [facility] [address] [address] Renato Hayward MD Results (Zio) 10/09/2023 1:24 PM CDT - 10/09/2023 11:59 PM CDT Hospital Encounter [address] [place] [address] Renato Hayward MD Anscomb, Kari B Other cardiomyopathy (HC); Chest pain, unspecified type; Congestive heart failure, unspecified HF chronicity, unspecified heart failure type (HC) 10/09/2023 Travel 10/03/2023 Telephone [facility] [place] [facility] [address] [address] Renato Hayward MD Follow Up (BP) 09/26/2023 Telephone [facility] [place] [facility] [address] [place] [address] Renato Hayward MD Concerns 09/22/2023 3:40 PM CDT Orders Only [facility] [address] [place] [address] Lab 09/22/2023 Travel 09/19/2023 Orders Only [facility] [place] [facility] [address] [place] [address] Renato Hayward MD 2 scans: (2-Ord) EKG, IE, 09/22/23 from Last 3 Months Social History Tobacco Use Types Packs/Day Years Used Date Smoking Tobacco: Every Day Cigarettes 0.5 32.8 Started: 1991 Smokeless Tobacco: Never Tobacco Cessation:Ready to Q uit: Not Asked; Counseling Given: Not Answered Comments:10-15 cigarettes daily Alcohol Use Standard Drinks/Week Comments Yes 0 (1 standard drink = 0.6 oz pur e alcohol) binge drinks every few months PHQ-2 Answer Date Recorded PHQ-2 TOTAL SCORE 4 08/08/2022 Social Connections Answer Date Recorded Frequency of Communication with Friends and Fami ly Not on file 05/10/2022 Sex and Gender Information Value Date Recorded Sex Assigned at Not on file Gender Identity Not on file Sexual Orientation Not on file Obstetrics History Last Filed Vital Signs Vital Sign Reading Time Taken Comments Blood Pressure 144/92 08/11/2023 3:24 PM CDT Pulse 63 08/11/2023 3:24 PM CDT Temperature 36.7 ??C (98.1 ??F) 05/04/2022 8:16 AM CS T Respiratory Rate 18 08/17/2022 11:50 AM CDT Oxygen Saturation 98% 08/11/2023 3:24 PM CDT Inhaled Oxygen Concentration - - Weight 64.9 kg (143 lb) 08/11/2023 3:24 PM CDT Height 160 cm (5' 3) 08/11/2023 3:24 PM CDT Body Mass Index 25.33 08/11/2023 3:24 PM CDT Plan of Treatment Health Maintenance Due Date Last Done Comments Pneumococcal series for age 6-64 (1 of 2 - PCV) 08/24/1983 Tdap 1988 Hepatitis C screening for ag e 18-79 08/24/1995 Tetanus booster 1997 Colonoscopy through age 75 2022 Mammogram for age 45-75 2022 Depression screening for age 12+ 08/09/2023 08/09/19 COVID-19 vaccine series ( - season) 2023 Influenza for age 9-49 11/05/2023 BMI (ht and wt on same day) for age 18+ 08/10/2024 08/11/2023, 09/28/2022, 05/10/2022 Pap test for age 21-65 05/18/2026 , 05/19/2023, 03/25/2022, Additional history exists Lipids for age 45-75 04/30/2027 04/30/2022 HIV for age 15-65 Completed 04/30/2022, 04/30/2022 Procedures Procedure Name Priority Date/Time Associated Diagnosis Comments ECHO TTE COMPLETE WO CONTRAST Routine 10/09/2023 2:27 PM CDT Other cardiomyopathy (HC) Chest pain, unspecified type Congestive heart failure, unspecified HF chronicity, unspecified heart failure type (HC) PRO-BNP Routine 09/22/2023 3:11 PM CDT Other cardiomyopathy (HC) BASIC METABOLIC PANEL Routine 09/22/2023 3:11 PM CDT Other cardiomyopathy (HC) EKG 12 LEAD Routine 09/22/2023 Congestive heart failure, unspecified HF chronicity, unspecified heart failure type (HC) HPV HIGH RISK Routine 05/19/2023 2:15 PM CDT RAPID HIV SCREEN STAT 04/30/2022 10:5 6 PM LUNCHROOM ATTENDANT LIPID PANEL Early AM 04/30/2022 1:02 AM LUNCHROOM ATTENDANT from Last 3 Months or Most Recently Relevant to Health Maintenance Results * ECHO TTE COMPLETE WO CONTRAST (10/09/2023 2:27 PM CDT) AORTIC VALVE MEAN PG 3 mmHg EJECTION FRACTION 57 % PEAK TR VELOCITY 2.2 m/s LVEDD 4.8 cm Anatomical Region Laterality Modality Ultrasound 10/09/2023 12:2 5 PM CDT Narrative 10/09/2023 3:11 PM CDT ECHOCARDIOGRAM KADIE MOSS ? Accession#: ?? [id number] : ?1975 48 years Study Date: ?? 10/09/2023 12:25:53 PM Gender: F ?BP: ? 0/0 mmHg Height: 160.00 cm ?BSA: ?1.67 m? ? ? Weight: 64.00 kg ? Tech: ? KBA ? Referring MD: RENATO HAYWARD Site: ? Reading Location: [facility] OP Patient Location: Outpatient. Procedure: 2D, Color Doppler and Spectral Doppler. Indication for study: CP, CM, CHF Cardiac Rhythm: Sinus bradycardia.Study quality: Good. Final Impressions: 1. Normal left ventricular size, normal wall thickness, normal global systolic function, calculated EF of 57 %. 2. Right ventricular cavity size is normal, global systolic RV function is normal. Comparison Compared to prior exam report of 08/17/22, there has been no significant change. Chamber Sizes and Function Normal left ventricular size, normal wall thickness, normal global systolic function, calculated EF of 57 %. Left atrial size is normal. Left atrial pressure is normal. Right ventricular cavity size is normal, global systolic RV function is normal. RV wall thickness is normal. The right atrium is normal. Right atrial volume index is 25 ml/m? ? ?. Right atrial area is 16 cm? ? ?. The pulmonary artery is of normal size and origin. The sinus of Valsalva is normal sized. The ascending aorta is normal sized. Valves, RV Pressures and Diastolic Function The aortic valve is normal in structure and trileaflet, no stenosis and no regurgitation. The mitral valve is normal in structure, trace mitral regurgitation. Normal diastolic function. The tricuspid valve is normal in structure. Tricuspid regurgitation is trace regurgitation. The tricuspid regurgitant velocity is 2.2 m/s, the estimated right ventricular systolic pressure is 20 mmHg plus right atrial pressure. There is normal estimated pulmonary pressure by tricuspid regurgitation velocity and right atrial pressure. The pulmonic valve is normal. Trace pulmonary regurgitation. Masses, Effusion, Shunts There is no pericardial effusion. The inferior vena cava is normal sized, respiratory size variation greater than 50%. No left to right shunting was detected by limited color flow Doppler interrogation of the interatrial septum. MEASUREMENTS AND CALCULATIONS 2-D Measurements and LV Function: LVID (d) 4.8 cm Planimetered EF 57 % LVID (s) 2.8 cm LV FS% (2D) ? 42 % IVS (d) ??0.8 cm LVOT diameter ?? 2.0 cm LVPW (d) 0.9 cm HR ?48 bpm Ao Sinus 2.6 cm LA Vol index ?29 ml/m2 Asc Ao ?? 3.3 cm RA Vol index ?25 ml/m2 ?RA area ? 16 cm? ? ? Diastology: Mitral ?Tissue Doppler ?Pulmonary veins E Peak 0.8 m/s ??e', Septum ? 0.10 m/s Pulm s ?72.4 cm/s A Peak 0.4 m/s ??e', Lateral ?0.13 m/s Pulm d ?52.3 cm/s E/A ?2.1 ?E/e' Average ?? 6.72 ? Pulm s/d ratio ??1.38 DT ? 176 msec Aortic Valve: Vmax ? 1.2 m/s ??CHRIS (V) ?? 2.70 cm? ? ? VTI ?0.27 m ?? CHRIS (I) ?? 2.90 cm? ? ? LVOT V max 1.0 m/s ??Max PG ?6 mmHg LVOT VTI ?? 0.25 m ?? Mean PG ?? 3 mmHg SV ? 79 ml ?Dim Index 0.92 SV index ?? 47 ml/m? ? ? CO ?3.8 l/min ?CI ?2.3 l/min/m? ? ? Mitral Valve: MVA ?4.3 cm? ? ? MV P 1/2 51 msec Tricuspid Valve and estimated PA pressures: TR Vmax 2.2 m/s TAPSE 2.4 cm TR maxG 20 mmHg Pulmonic Valve: PV AT 187 msec . This study was interpreted by an [facility] accredited facility. ??Final ?? Procedure Note Juan Cheng MD - 10/09/2023 ECHOCARDIOGRAM KADIE MOSS : 1975 48 years Study Date: 10/09/2023 12:25:53 PM Gender: F BP: 0/0 mmHg Height: 160.00 cm BSA: 1.67 m? ? ? Weight: 64.00 kg Tech: COMPA Salcido MD: RENATO HAYWARD Site: Reading Location: [facility] Patient Location: Outpatient. Procedure: 2D, Color Doppler and Spectral Doppler. Indication for study: CP, CM, CHF Cardiac Rhythm: Sinus bradycardia.Study quality: Good. Final Impressions: 1. Normal left ventricular size, normal wall thickness, normal globalsystolic function, calculated EF of 57 %. 2. Right ventricular cavity size is normal, global systolic RV functionis normal. Comparison Compared to prior exam report of 08/17/22, there has been no significantchange. Chamber Sizes and Function Normal left ventricular size, normal wall thickness, normal globalsystolic function, calculated EF of 57 %. Left atrial size is normal. Leftatrial pressure is normal. Right ventricular cavity size is normal, globalsystolic RV function is normal. RV wall thickness is normal. The rightatrium is normal. Right atrial volume index is 25 ml/m? ? ?. Right atrialarea is 16 cm? ? ?. The pulmonary artery is of normal size and origin. Thesinus of Valsalva is normal sized. The ascending aorta is normal sized. Valves, RV Pressures and Diastolic Function The aortic valve is normal in structure and trileaflet, no stenosis and noregurgitation. The mitral valve is normal in structure, trace mitralregurgitation. Normal diastolic function. The tricuspid valve is normal instructure. Tricuspid regurgitation is trace regurgitation. The tricuspidregurgitant velocity is 2.2 m/s, the estimated right ventricular systolicpressure is 20 mmHg plus right atrial pressure. There is normal estimatedpulmonary pressure by tricuspid regurgitation velocity and right atrialpressure. The pulmonic valve is normal. Trace pulmonary regurgitation. Masses, Effusion, Shunts There is no pericardial effusion. The inferior vena cava is normal sized,respiratory size variation greater than 50%. No left to right shunting wasdetected by limited color flow Doppler interrogation of the interatrialseptum. MEASUREMENTS AND CALCULATIONS 2-D Measurements and LV Function: LVID (d) 4.8 cm Planimetered EF 57 % LVID (s) 2.8 cm LV FS% (2D) 42 % IVS (d) 0.8 cm LVOT diameter 2.0 cm LVPW (d) 0.9 cm HR 48 bpm Ao Sinus 2.6 cm LA Vol index 29 ml/m2 Asc Ao 3.3 cm RA Vol index 25 ml/m2 RA area 16 cm? ? ? Diastology: Mitral Tissue Doppler Pulmonary veins E Peak 0.8 m/s e', Septum 0.10 m/s Pulm s 72.4 cm/s A Peak 0.4 m/s e', Lateral 0.13 m/s Pulm d 52.3 cm/s E/A 2.1 E/e' Average 6.72 Pulm s/d ratio 1.38 DT 176 msec Aortic Valve: Vmax 1.2 m/s CHRIS (V) 2.70 cm? ? ? VTI 0.27 m CHRIS (I) 2.90 cm? ? ? LVOT V max 1.0 m/s Max PG 6 mmHg LVOT VTI 0.25 m Mean PG 3 mmHg SV 79 ml Dim Index 0.92 SV index 47 ml/m? ? ? CO 3.8 l/min CI 2.3 l/min/m? ? ? Mitral Valve: MVA 4.3 cm? ? ? MV P 1/2 51 msec Tricuspid Valve and estimated PA pressures: TR Vmax 2.2 m/s TAPSE 2.4 cm TR maxG 20 mmHg Pulmonic Valve: PV AT 187 msec . This study was interpreted by an [facility] accredited facility. Final Renato Hayward MD ECHO ORD * (ABNORMAL) PRO-BNP (09/22/2023 3:11 PM CDT) [facility] PRO-BNP 147(H) <125 pg/mL 09/23/2023 12:58 PM CDT [facility] Blood BLOOD SPECIMEN / Unknown Venipuncture / Unknown 09/22/2023 3:11 PM CDT 09/22/2023 3:11 PM CDT [facility] - 09/23/2023 12:58 PM CDT The following cut-points have been suggested for the use of proBNP for the diagnostic evaluation of heart failure (HF) in patient with acute dyspnea. Patients with eGFR >= 60 Diagnosis (rule in CHF) ? <50 Years Old ?450 pg/mL 50 - 75 Years Old ?900 pg/mL >75 Years Old ? 1800 pg/mL Exclusion (rule out CHF) Age Independent ?300 pg/mL A cutoff of 1200 pg/mL for patients with an eGFR <60 yields a diagnostic sensitivity of 89% and specificity of 72% for acute congestive heart failure. ? Renato Hayward MD [facility] [address] [place] [address], * (ABNORMAL) BASIC METABOLIC PANEL (09/22/2023 3:11 PM CDT) [facility] SODIUM 139 136 - 145 mmol/L 09/23/2023 12:54 PM CDT [facility] POTASSIUM 4.4 3.5 - 5.1 mmol/L 09/23/2023 12:54 PM CDT [facility] CHLORIDE 103 98 - 107 mmol/L 09/23/2023 12:54 PM CDT [facility] CO2,TOTAL 27 22 - 29 mmol/L 09/23/2023 12:54 PM CDT [facility] ANION GAP 9 5 - 18 09/23/2023 12:54 PM CDT [facility] GLUCOSE 101(H) 70 - 99 mg/dL 09/23/2023 12:54 PM CDT [facility] CALCIUM 8.9 8.6 - 10.0 mg/dL 09/23/2023 12:54 PM CDT [facility] BUN 12 6 - 20 mg/dL 09/23/2023 12:54 PM CDT [facility] CREATININE 0.99(H) 0.50 - 0.90 mg/dL 09/23/2023 12:54 PM CDT [facility] BUN/CREAT RATIO 12 10 - 20 12:54 PM CDT [facility] eGFR 71(L) >90 mL/min/1.7 3m2 09/23/2023 12:54 PM CDT [facility] Comment:As of 2021, eG FR is calculated by the CKD-EPI creatinine equation without race adjustment. ??eGFR can be influenced by muscle mass, exercise, and diet. ??The reported eGFR is an estimation only and is only applicable if the renal function is stable. Blood BLOOD SPECIMEN / Unknown Venipuncture / Unknown 09/22/2023 3:11 PM CDT 09/22/2023 3:11 PM CDT Renato Hayward MD CHEMISTRY [facility] [address] [place] [address], * EKG 12 LEAD (09/22/2023) Renato Hayward MD EKG ORD * HPV HIGH RISK (05/19/2023 2:15 PM CDT) TYPE 16 Negative Negative 05/24/2023 5:25 PM CDT [facility] TYPE 18 Negative Negative 05/24/2023 5:25 PM CDT [facility] OTHER HIGH RISK TYPES Negative Negative 05/24/2023 5:25 PM CDT [facility] Other (Cervical) 05/19/2023 2:15 PM CDT 05/23/2023 12:50 PM CDT Narrative [facility] - 05/24/2023 5:25 PM CDT HPV types 16, 18, 31, 33, 35, 39, 45, 51, 52, 56, 58, 59, 66 and 68 DNA were undetectable or below the pre-set threshold. Methodology: [employer] 4800 HPV Test Lindsay Earl NP MICROBIOLOGY [facility] [address] [place] [address], * RAPID HIV SCREEN (04/30/2022 10:56 PM LUNCHROOM ATTENDANT) RAPID HIV SCREEN Non-React marquez Non-Reactiv e, Invalid 04/30/2022 11:59 PM LUNCHROOM ATTENDANT [facility] Comment:A NONREACTIVE test r esult means that HIV-1 or HIV-2 antibodies and HIV-1 p24 antigen were not detected in the specimen. Blood BLOOD SPECIMEN / Unknown Butterfly / Unknown 04/30/2022 10:56 PM LUNCHROOM ATTENDANT 04/30/2022 11:06 PM LUNCHROOM ATTENDANT Grayson Ware MD CHEMISTRY [facility] [address] [place] [address], * (ABNORMAL) Lipid Panel AM (04/30/2022 1:02 AM LUNCHROOM ATTENDANT) CHOLESTEROL,TOTAL 146 mg/dL 023 1:33 AM LUNCHROOM ATTENDANT [facility] Comment: Cholesterol, Total Reference Ranges Desirable <200 mg/dL Borderline 200-239 mg/dL High >=240 mg/dL TRIGLYCERIDES 115 <150 mg/dL 04/30/2022 1:33 AM LUNCHROOM ATTENDANT [facility] HDL CHOLESTEROL 30(L) >40 mg/dL 3 1:33 AM LUNCHROOM ATTENDANT [facility] NON-HDL CHOLESTEROL 116 <145 mg/dl 04/30/2022 1:33 AM LUNCHROOM ATTENDANT [facility] CHOL/HDL RATIO 4.87(H) <4.50 04/30/2022 1:33 AM LUNCHROOM ATTENDANT [facility] LDL CHOLESTEROL 93 <=130 mg/dL 04/30/2022 1:33 AM LUNCHROOM ATTENDANT [facility] VLDL CHOLESTEROL 23(L) >30 mg/dL 04/30/19 23 1:33 AM LUNCHROOM ATTENDANT [facility] PROVIDER ORDERED STATUS RANDOM 04/30/2022 1:33 AM LUNCHROOM ATTENDANT [facility] Blood BLOOD SPECIMEN / Unknown Non-Lab Venipuncture / Unknown 04/30/2022 1:02 AM LUNCHROOM ATTENDANT 04/30/2022 1:02 AM LUNCHROOM ATTENDANT Dionisio Chaidez MD CHEMISTRY [facility] [address] [place] [address], [place] from Last 3 Months or Most Recently Relevant to Health Maintenance Advance Directives * Full Code (Latest Code Status on File) Date Activated Date Inactivated Comments 04/29/2022 6:27 PM 05/04/2022 1:58 PM Question Answer Comments Code Status Discussion: Unable to Assess Preferences, Provider to review later Care Teams Lace Roller Operator Relationship Specialty Start Date End Date Juan Carlos Mcqueen MD [address] [place] [address] PCP - General Family Practice 05/10/22 Renato Hayward MD [address] [facility] [address] [place] [address] Cardiovascular Disease 05/12/22 Nurses, Advanced Heart Failure [address] [place] [address] Advanced Heart Failure/Transplant Card 05/12/22
--- OUTSIDE RECORDS SUMMARY | 2023-12-18 20:31 | XMS_ITS | Encounter Summary ---
Author Organization [place] Address [address] [facility] [place] [address] Care Team Providers Care Trimmer Buffing Wheel Name Role Phone Unavailable Primary Care Provider Unavailabl e Reason for Visit * Reason Onset Date Comments MH/CD Inpatient 11/17/2015 Encounter Details Date Type Department Care Team ([facility] st Contact Info) Description 11/17/2015 Telephone [facility] Health Intake [address] [place] [address] Generic, Behavioral Intake, MH/CD Inpatient [...]
--- OUTSIDE RECORDS SUMMARY | 2023-12-18 20:31 | XMS_ITS | Referral Summary ---
Author Organization [place] Address [address] [place] [address] Care Team Providers Care Mortgage Analyst Name Role Phone Unavailable Primary Care Provider Unavailabl e Allergies Active Allergy Reactions Criticality Noted Date Comments No Known Drug Allergy 12/05/2001 Medications Medication Sig Dispensed Refills Start Date End Date Status citalopram (CELEXA) 40 MG tabletIndications:Mateo marcos depressive disorder, single episode, mild (H),Anxiety Take 1 tablet (40 mg) by mouth [...] Active oxymetazoline (AFRIN) 0.05 % nasal spray [place] 2 sprays into both nostrils daily as needed Active gabapentin (NEURONTIN) 400 MG capsule Take 1 capsule (400 mg) by mouth 3 times daily For 3 days, then twice daily for 1 day, then once daily on day 5, then stop 12 capsule 08/02/2020 Active Active Problems Problem Noted Date Diagnosed Date Alcohol abuse 11/18/2015 PIH ( induced hypertension) 10/11/2010 Overview: Pt [...] Problem Noted Date Diagnosed Date Resolved Date Health [facility] 05/06/2011 08/21/2023 Overview: X EMERGENCY CARE PLAN Presenting Problem Signs and Symptoms Treatment Plan Questions or concerns during clinic hours I will call the clinic directly Questions or concerns outside clinic hours I will call the 24 hour nurse line at [phone] Patient needs to schedule an appointment I will call the 24 hour scheduling team at [phone] or clinic directly Same day treatment I will call the clinic first, nurse line if after hours, urgent care and express care if needed DX V65.8 REPLACED WITH [id number] [facility] (06/11/2012) GBS (group B Streptococcus c arrier), +RV [...] on file Medical Devices Implanted Type Area Parking Supervisor Device Identifier Shelf Expiration Date Model / Serial / Lot Device Essure [id number] Implanted:Qty: 2 on 02/09/2011 at [facility] Bilateral: Fallopian Tube [employer] [id number] / / [id number] Advance Directives For more information, please contact: [phone] * Full Code (Latest Code Status on File) Date Activated Date Inactivated Comments 11/18/2015 12:49 AM 11/20/2015 4:26 PM
--- OUTSIDE RECORDS SUMMARY | 2023-12-18 20:31 | XMS_ITS | Clinical Summary ---
Author Organization [place] Address [facility] [place] [address] Care Team Providers Care Manager Infrastructure Name Role Phone Unavailable Primary Care Provider [...] Active oxymetazoline (AFRIN) 0.05 % nasal spray [place] 2 sprays into both nostrils daily as [...] Noted Date Diagnosed Date Resolved Date Health Retirement 05/06/2011 08/21/2023 Overview: X EMERGENCY CARE PLAN Presenting Problem Signs and Symptoms Treatment Plan Questions or concerns during clinic hours I will call the clinic directly Questions or concerns outside clinic hours I will call the 24 hour nurse line at [phone] Patient needs to schedule an appointment I will call the 24 hour scheduling team at [phone] or clinic directly Same day treatment I will call the clinic first, nurse line if after hours, urgent care and express care if needed DX V65.8 REPLACED WITH [id number] HEALTH [facility] (06/11/2012) GBS (group B Streptococcus c arrier), [...] on file Medical Devices Implanted Type Area Steam Shovel Operator Device Identifier Shelf Expiration Date Model / Serial / Lot Device Essure [id number] Implanted:Qty: 2 on 02/09/2011 at [facility] Bilateral: Fallopian Tube [employer] [id number] / / [id number] Advance Directives For more information, please contact: [phone] * Full Code (Latest Code Status on File) Date Activated Date Inactivated Comments 11/18/2015 12:49 AM 11/20/2015 4:26 PM
--- OUTSIDE RECORDS SUMMARY | 2023-12-18 20:31 | XMS_ITS | Encounter Summary ---
Author Organization [place] Address [address] [facility] [address] Care Team Providers Care Internist Medical Doctor Md Name Role Phone Niko Pryor MD Primary Care Provider [phone] Jayden Santo MD Primary Care Provider Encounter Details Date Type Department Care Team (Late st Contact Info) Description 11/10/2010 [facility] [address] [place] [id number] Olive Brown, DO [address] [place], [place] [id number] [facility] Delivery Record Social History Tobacco Use [...] as of this encounter Visit Diagnoses Diagnosis [facility] Delivery Record- Primary documented in this encounter Care Teams Internist Medical Doctor Md Relationship Specialty Start Date End Date Niko Pryor MD [address] [place] [address] PCP - General 04/20/01 04/30/11 Jayden Santo MD [address] [address] PCP - General Internal Medicine 05/01/11 03/06/15 documented as of this encounter
[2023-12-18 20:32] LABS: Creatinine* 0.7 mg/dL (0.5-1.5); Est. Creatinine Clearance* 83.07; Estimated Glomerular Filt Rate 108 ml/min
[2023-12-18 20:33] LABS: Anion Gap 8 mEq/L (7-15); Blood Urea Nitrogen* 20 mg/dL (5-24); Calcium* 9.4 mg/dL (8.4-10.6); Carbon Dioxide* 26 mmol/L (20-32); Glucose* 91 mg/dL (60-115)
[2023-12-18 20:35] LABS: D Dimer Quantitative* 0.66 ug/ml (0.00-0.50)
[2023-12-18] MEDS: ASPIRIN 81 MG TAB.CHEW 324 MG PO (20:35)
[2023-12-18 20:44] LABS: NT Pro B Type NatriureticPept* 46 pg/mL
[2023-12-18 20:49] LABS: PCR FLU A Negative PCR FLU A (Negative); PCR FLU B Negative PCR FLU B (Negative); SARS PCR* Negative SARS-CoV-2 (Negative)
--- NOTE | 2023-12-18 21:21 | CRLHL7_ITS ---
For Patients: As a result of the Century Cures Act, medical imaging exams and procedure reports are released immediately into your electronic medical record. You may view this report before your referring provider. If you have questions, please contact your health care provider. INDICATION: Dyspnea. Chest pain. TECHNIQUE: Multiplanar CT pulmonary angiogram was performed after the administration of 80 mL of Isovue 370 intravenous contrast. COMPARISON: Same-day chest radiographs. FINDINGS: Lower neck: The visualized thyroid is unremarkable. Cardiovascular: Contrast opacification of the pulmonary arterial tree is adequate. Heart size is normal. Thoracic aorta and pulmonary artery are normal in caliber. No significant atherosclerotic calcifications of the aortic arch. No significant coronary arterial calcifications. No pulmonary embolus. Mediastinum and lymph nodes: Unremarkable. No pathologic mediastinal or hilar lymphadenopathy by size criteria. Lungs: No focal consolidation. Dependent atelectasis. Linear bandlike opacification of the lung bases bilaterally, likely subsegmental atelectasis and/or scarring. Airways: The trachea remains patent and midline. Mild diffuse peribronchial wall thickening. Pleura: No pleural effusions or pneumothorax Chest wall: Unremarkable. Bones: No acute osseous abnormalities. Upper abdomen: Unremarkable. No reflux of contrast material into the IVC. IMPRESSION: 1. No pulmonary embolus. No CT evidence of right heart strain. 2. No acute intrathoracic pathology. Please note that all CT scans at this facility use dose modulation, iterative reconstruction, and/or weight-based dosing when appropriate to reduce radiation dose to as low as reasonably achievable. Dictated by Ta Conner MD @ 12/18/2023 11:21:09 PM (Electronically Signed)
[2023-12-18 23:08] LABS: Troponin, Point-of-Care* 0.01 ng/ml (0.01-0.04)
[2023-12-19] VITALS: PULSE 64; O2SAT 95
[2023-12-19 00:01] VITALS: BP 95/69; PULSE 69; O2SAT 95
== END 2023-12-19 00:28 | disposition home or self-care (01) ==
PROVIDERS: Emergency Provider Emergency Medicine; PCP Family Medicine
DX: R07.9 Chest pain, unspecified (principal)
CPT/HCPCS: 36415; 71046; 71275; 80048; 83605; 83880; 84484; 85025; 85379; 87631; 93005; 99284; 99285; A9270; Q9967

== ENCOUNTER 2024-02-21 15:15 | Outpatient (CLI) | payer BC, SELFPAY | END 2024-02-21 15:16 | disposition home or self-care (01) | LOC: NFLDUCREF 15:15 | PROVIDERS: PCP Family Medicine; Visit Provider Nurse Practitioner Family | DX: R30.0 Dysuria (principal) | CPT/HCPCS: 87086 ==